=== PATIENT | female | born 1960 | race Caucasian/White ===

== ENCOUNTER 2017-03-31 10:47 | Emergency (ER) | payer OTHER ==
[2017-03-31 11:02] VITALS: BP 141/97
[2017-03-31] MEDS ORDERED: ORPHENADRINE CITRATE 30 MG/ML VIAL IM ONE (11:18)
[2017-03-31] MEDS ORDERED: ORPHENADRINE CITRATE 30 MG/ML VIAL ONE (11:19)
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
--- OUTSIDE RECORDS SUMMARY | 2017-03-31 12:19 | XMS REPORT | Continuity of Care Document ---
:1960 Author Organization [facility] [place] [address] Care Team Providers Name Role Phone Unavailable Primary Care Provider Unavailable Source Comments This disclosure is being made pursuant to the ACE*COMM program and maynot contain all information available regarding this patient.[facility] Active Allergies and Adverse Reactions Not on File Current Medications Be aware that medications may not be up to date as of this document. Alwaysverify current medications with the patient. Not on file Active Problems Not on file Social History Tobacco Use Types Packs/Day Years Used Date Never Assessed Plan of Care Health Maintenance Due Date Last Done Comments Retired-Pertussis Vaccine Adult 1978 Retired-Tetanus Vaccine Adult 1978 Pap Smear 1980 Mammogram 1999 Colonoscopy 2009 Well Adult Visit 2009 Retired-INFLUENZA VACCINE 06/18/2015 Results from Last 3 Months Not on file
--- NOTE | 2017-03-31 12:20 | ERNOTE ---
Back Pain ER HPI Date of Service: 03/31/17 Presenting Symptoms: hx chronic back pain Time Seen by Provider: 03/31/17 11:09 Source: patient Exam Limitations: no limitations Immunizations: IMMUNIZATION HX Immunizations Up to Date Yes History of Influenza Vaccine Yes Hx Pneumococcal Vaccination No Allergies/Adverse Reactions: Allergies quetiapine fumarate [From Seroquel] Allergy (Intermediate, Verified 03/31/17 11: 01) Hives risperidone Allergy (Intermediate, Verified 03/31/17 11:01) Hives codeine [Codeine] Adverse Reaction (Mild, Verified 03/31/17 11:01) Vomiting Home Medications: HOME MEDICATIONS ARIPiprazole [Abilify] 2.5 mg PO HS 03/31/17 [Last Taken Unknown] Amlodipine Besylate 10 mg PO DAILY 03/31/17 [Last Taken Unknown] Aspirin 81 mg PO DAILY 03/31/17 [Last Taken Unknown] Bupropion HCl [Wellbutrin Xl] 300 mg PO DAILY 03/31/17 [Last Taken Unknown] Buspirone HCl 30 mg PO BID 03/31/17 [Last Taken Unknown] Cetirizine HCl [Zyrtec] 10 mg PO DAILY 03/31/17 [Last Taken Unknown] Fluticasone Propionate [Flovent Diskus] 50 mcg IH BID 03/31/17 [Last Taken Unknown] Fluticasone/Salmeterol [Advair 250-50 Diskus] 1 puff IH BID 03/31/17 [Last Taken Unknown] Gabapentin [Neurontin] 300 mg PO HS 03/31/17 [Last Taken Unknown] Glycopyrrolate/Formoterol Fum [Bevespi Aerosphere Inhaler] 10.7 gm IH BID [Last Taken Unknown] Levothyroxine Sodium [Levoxyl] 25 mcg PO DAILY 03/31/17 [Last Taken Unknown] Lisinopril [Zestril] 10 mg PO DAILY 03/31/17 [Last Taken Unknown] Mirtazapine 7.5 mg PO HS 03/31/17 [Last Taken Unknown] Pravastatin Sodium 40 mg PO DAILY 03/31/17 [Last Taken Unknown] QUEtiapine FUMARATE [Seroquel] 25 mg PO HS 03/31/17 [Last Taken Unknown] Sertraline HCl [Zoloft] 100 mg PO DAILY 03/31/17 [Last Taken Unknown] Tramadol HCl [Rybix Odt] 50 mg PO Q6H PRN #15 tab.rapdis 03/31/17 [Last Taken Unknown] Vortioxetine Hydrobromide [Trintellix] 20 mg PO DAILY 03/31/17 [Last Taken Unknown] clonazePAM [Klonopin] 0.5 mg PO BID 03/31/17 [Last Taken Unknown] rOPINIRole HCL [Requip] 0.5 mg PO HS 03/31/17 [Last Taken Unknown] Narrative: Patient presents to the ED with diffuse musculoskeletal pains. She relates she has been moving and has been doing alot of lifting and twisting. She relates that she normally takes Ultram for this but has ran out of this and her last dose was last night. She states the thing that is bothering her most in her left hip because she twisted it but also her chronic orthopedic pains are flaring up in her neck, back, shoulder. No fever. No Cp or SOB. No abdominal pain. No dysuria. No other distinct injury or falls. Timing: Reports: constant Quality/Severity: Reports: severe Location of pain: Reports: other - multiple sites Possible Precipitating Factor: Reports: other - ran out of medications Modifying Factors - (Improves): Reports: nothing Modifying Factors - (Worsens): Reports: other - movement Associated Symptoms: Denies: fever/chills, numbess/weakness in legs Prior Treament: Denies: recently seen Review of Systems - Review of Systems Constitutional: Absent: fever Respiratory: Absent: shortness of breath Cardiology: Absent: chest pain Gastrointestinal/Abdominal: Absent: abdominal pain Neurological: Absent: weakness - Patient's Past Medical History Patient History - Medical: Chronic Pain, Depression, Fibromyalgia, Other Patient History - Cardiac/Respiratory: No pertinent hx Patient History - Cancer: Melanoma Patient History - Surgical Procedures: Appendectomy Patient History - Other: None - Family History Mother Family History - Medical: - Social History Living Situations: home Psych History: Hx of Anxiety, Hx of Depression, Hx of Bipolar Disorder, Current tx/ever been on anti-depressants or anti-anxiety meds Have you smoked in the past 12 months: - e-cigaret Alcohol Use: occasionally Drug Use: cocaine - Immunizations Immunizations Up to Date: Yes Hx Pneumococcal Vaccination: No History of Influenza Vaccine: Yes Physical Exam - Physical Exam General Appearance: Present: alert, no apparent distress, other - Sitting on the bed watching TV. Eye Exam: Normal inspection: bilateral, PERRL: bilateral Ears, Nose, Throat: Present: normal ENT inspection Neck: Present: normal inspection, other - some mild paraspinal muscular tendenress. No point vertebral tenderness Respiratory: Present: no respiratory distress, normal breath sounds, lungs clear Cardiovascular/Chest: Present: regular rate, rhythm, normal peripheral pulses Gastrointestinal/Abdominal: Present: normal bowel sounds, nontender, nondistended, soft Back Exam: Present: no vertebral tenderness, other - Mild parasoinal muscular tendenress diffusely Extremity Exam: Present: normal inspection, other - Mild lateral left hip tenderness. No deformity or signs of acute injury Neurological Exam: Present: alert, normal mood/affect, no motor/sensory deficits , rn gyn II-XII nml as tested. Absent: motor weakness Skin Exam: Absent: skin rash ED Progress - Vital Signs Patient's Vital Signs:: I have reviewed the patient's vital signs. Vital Signs: Vital Signs 03/31/17 10:58 Temperature 37 C Pulse Rate 75 Respiratory 14 Rate Blood Pressure 141/97 O2 Sat by Pulse 94 Oximetry - X-Ray X-Ray #1 X-Ray: hip Interpretation: Interp. by me X-ray Comments: I reviewed the official x-ray report - Progress/Reassessment Chief Complaint: Back Pain Progress Note-Subjective: 03/31/17 12:19 I offered her additional testing with labs, etc but she declines this and wishes a Rx for pain medications. I will give her a limited number of Ultram until she can f/u with her PCP. Ran out of her ultram at home. No other clear life or limb threats identified from exam. Departure Clinical Impression: Musculoskeletal pain - Departure Disposition: Home self-care Condition: Stable Instructions: Musculoskeletal Pain Additional Instructions: Rest. Fluids. No driving with medications. You need to follow-up with your doctor in the next 3 days for a re-check. Return here if your change your mind about having additional testing, develop weakness, fever or if your condition worsens or changes in any way. Prescriptions: Tramadol HCl [Rybix Odt] 50 mg PO Q6H PRN #15 tab.rapdis PRN Reason: Pain
== END 2017-03-31 12:11 | disposition home or self-care (01) ==
LOC: ER 10:47
DX: M25.552 Pain in left hip (principal); M54.2 Cervicalgia; M54.9 Dorsalgia, unspecified; M25.519 Pain in unspecified shoulder

== ENCOUNTER 2018-09-12 17:56 | Observation (INO) ==
[2018-09-12] MEDS ORDERED: ALBUTEROL SULFATE/IPRATROPIUM 3 ML NEBU IH ONE ×2 (18:00→18:12)
[2018-09-12] MEDS ORDERED: METHYLPREDNISOLONE SOD SUCC/PF 40 MG/ML VIAL IV ONE (18:21)
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
[2018-09-12 18:28] LABS: Hematocrit 35.2 % (37.0-47.0); Hemoglobin 12.2 gm/dL (12.5-16.0); Mean Cell Volume 92.6 fl (78-100); Mean Corpuscular Hemoglobin 32.1 pg (27-31); Mean Corpuscular Hgb Conc 34.7 g/dl (32-36); Mean Platelet Volume 8.7 fl (8-12.5); Neutrophil # 3.2 K/mm3 (1.3-6.0); Neutrophil % 45.2 % (42-75.0); Platelet Count 367 K/mm3 (150-450); Red Cell Distribution Width 13.1 % (11.5-14.0)
[2018-09-12] MEDS ORDERED: METHYLPREDNISOLONE SOD SUCC/PF 125 MG/2 ML VIAL ONE (18:28)
[2018-09-12 18:31] LABS: Venous Blood Gas HCO3 22.3 mmol/L (22.0-29.0); Venous Blood Gas pH 7.46 (7.32-7.43)
[2018-09-12 18:48] LABS: ALT 17 U/L (19-67); AST 19 U/L (0-48); Albumin * 3.6 gm/dl (3.4-5.0); Alkaline Phosphatase * 129 U/L (50-170); Anion Gap 10.8 mmol/L (6.8-13.8); BUN/Creatinine Ratio 10.3 (9.0-21.6); Bilirubin, Total 0.2 mg/dL (0.0-1.1); Blood Urea Nitrogen 8 mg/dL (3-23); Ca. Corrected For Albumin 9.1 mg/dL (8.4-10.2); Calcium * 9.1 mg/dL (7.9-10.9); Carbon Dioxide 30.9 mmol/L (24-32.6); Chloride 91 mmol/L (97-106); Glucose * 95 mg/dL (70-110); Magnesium 1.6 mg/dL (1.2-2.8); Potassium 3.7 mmol/L (3.4-4.6); Sodium 129 mmol/L (132-142); Total Protein 7.4 gm/dL (6.2-8.2); Troponin I Less than 0.017 ng/mL (0.00-0.10)
--- NOTE | 2018-09-12 20:10 | HP ---
Chief Complaint - Chief Complaint Date of Service: 09/12/18 Time of Service: 19:43 Chief Complaint: Cough, SOB, and gen.weakness of 5 days duration, nausea and vomiting of 3 days duration. History of Present Illness: 58 y/o Caucacian female with PMHx of COPD, Chron's disease, chronic pain disorder, Anxiety disorder, depresssion, TIA, Bronchial pneumonia, was brought to the ER in an ambulance due to worsening SOB, increased respiratory effort, dry cough, and generalized weakness of 5 days duration. Px reports that her symptoms started with a persistent cough followed by SOB that quickly got worse and that did not respond to at home breathing treatments with Albuterol. Several days later, Px had several episodes of fever and chills treated with Acetaminophen. Px also reports nausea and several episodes of vomiting which makes oral intake difficult. Her family decided to bring her in today when they noticed her severe weakness, lack of response to at home treatments, and an overall ill appearance of the patient. Medical History (Last Updated 09/12/18 @ 19:17 by Lena Ochoa RN) COPD (chronic obstructive pulmonary disease) Crohn disease Hx of TIA (transient ischemic attack) and stroke Hypertension Hypothyroidism hx of multiple fractures Surgical History: Surgical History (Last Updated 09/12/18 @ 18:09 by Lena Ochoa RN) Hx of appendectomy Hx of kidney removal Hx of splenectomy Hx of tonsillectomy Poor historian Family History: Family History (Last Updated 09/12/18 @ 18:09 by Lena Ochoa RN) Other No pertinent family history Social History: Preferred Language Stateless Do you have any congregational or No cultural preference? Smoking Status Current every day smoker Abuse History No History of abuse Psych History Hx of Anxiety,Hx of Depression,Hx of Bipolar Disorder,Currently on Meds Alcohol Use none Drug Use none No Social History Section defined Peds Patient Hx - Developmental: No Pertinent Hx Peds Patient Hx - Medical: No Pertinent Hx Peds Patient Hx - Cardiac/Respiratory: No Pertinent Hx Peds Patient Hx - Surgical: No Surgical History Patient History - Cancer: No Hx of Cancer Review Of Systems (GEN) - Review of Systems Generalized/Overall Review: Present: Weakness, Chills, Fever, Malaise, Fatigue, Weight loss EENTM: Present: No Symptoms Reported Respiratory: Present: Cough, Shortness of Breath, Wheezing Cardiac: Present: No Symptoms Reported Abdominal: Present: Nausea, Vomiting, Other - anorexia Genitourinary: Present: No Symptoms Reported Musculoskeletal: Present: No Symptoms Reported Neurological: Present: No Symptoms Reported Skin: Present: No Symptoms Reported Endocrine: Present: No Symptoms Reported Immunizations: IMMUNIZATION HX Immunizations Up to Date Yes History of Influenza Vaccine Yes Hx Pneumococcal Vaccination Yes Allergies/Adverse Reactions: Allergies Allergy/AdvReac Type Severity Reaction Status Date / Time quetiapine fumarate Allergy Intermediate Hives Verified 09/12/18 18:07 [From Seroquel] risperidone Allergy Intermediate Hives Verified 09/12/18 18:07 codeine [Codeine] AdvReac Mild Vomiting Verified 09/12/18 18:07 Home Medications: HOME MEDICATIONS Aspirin 81 mg PO DAILY 03/31/17 [Last Taken Unknown] Fluticasone Propionate [Flovent Diskus] 50 mcg IH BID 03/31/17 [Last Taken Unknown] Glycopyrrolate/Formoterol Fum [Bevespi Aerosphere Inhaler] 10.7 gm IH BID 03/31/17 [Last Taken Unknown] Levothyroxine Sodium [Levoxyl] 25 mcg PO DAILY 03/31/17 [Last Taken Unknown] Pravastatin Sodium 40 mg PO DAILY 03/31/17 [Last Taken Unknown] Vortioxetine Hydrobromide [Trintellix] 20 mg PO DAILY 03/31/17 [Last Taken 03/31/18 09:00] Albuterol Sulfate [Proventil Hfa] 2 puff IH Q4H PRN 03/31/18 [Last Taken Unknown] Benzonatate [Tessalon Perle] 100 mg PO TID PRN 03/31/18 [Last Taken Unknown] Clonidine HCl [Catapres] 0.1 mg PO BID 03/31/18 [Last Taken Unknown] Diphenhydramine HCl 50 mg PO HS PRN 03/31/18 [Last Taken Unknown] Doxepin HCl [Silenor] 3 mg PO HS 03/31/18 [Last Taken Unknown] Fluticasone Propionate [Flovent Hfa] 2 inh IH BID 03/31/18 [Last Taken Unknown] Gabapentin 1,200 mg PO TID 03/31/18 [Last Taken Unknown] Guaifenesin/Hydrocodone [Flowtuss 2.5-200 mg/5 ml Soln] 10 ml PO Q4H PRN 03/31/18 [Last Taken Unknown] Loratadine [Claritin] 10 mg PO DAILY 03/31/18 [Last Taken Unknown] Lurasidone HCl [Latuda] 40 mg PO QPM 03/31/18 [Last Taken Unknown] Meloxicam 7.5 mg PO DAILY 03/31/18 [Last Taken Unknown] Montelukast Sodium [Singulair] 10 mg PO QPM 03/31/18 [Last Taken Unknown] Omeprazole 40 mg PO DAILY 03/31/18 [Last Taken Unknown] Polyethylene Glycol 3350 [Smoothlax] 17 gm PO DAILY 03/31/18 [Last Taken Unknown] amLODIPine BESYLATE [Norvasc] 10 mg PO DAILY 03/31/18 [Last Taken Unknown] hydrOXYzine PAMOATE [Vistaril] 25 mg PO Q8H PRN 03/31/18 [Last Taken Unknown] oxyCODONE HCL [Oxycodone] 5 mg PO DAILY PRN 03/31/18 [Last Taken Unknown] prednisoLONE ACETATE [Pred Forte 1%] 1 drop OP Q2H 03/31/18 [Last Taken Unknown] rOPINIRole HCL [Requip] 2 mg PO QPM 03/31/18 [Last Taken Unknown] Albuterol Sulfate/Ipratropium [Duoneb 2.5-0.5MG/3ML Soln] 3 ml IH Q4H PRN #180 nebu 04/01/18 [Last Taken Unknown] Levofloxacin [Levaquin] 750 mg PO DAILY 5 Days #5 tablet 04/01/18 [Last Taken Unknown] predniSONE [Prednisone] 2 tab PO DAILY 5 Days #10 tab 04/01/18 [Last Taken Unknown] Amox Tr/Potassium Clavulanate [Augmentin 875-125 Tablet] 875 mg PO Q12H #20 tab 05/04/18 [Last Taken Unknown] Exam - Exam Vital Signs: Vital Signs - Last Taken Temp 36.2 C 09/12/18 18:04 Pulse 77 09/12/18 19:14 Resp 15 09/12/18 19:14 BP 173/114 H 09/12/18 18:15 Pulse Ox 93 09/12/18 19:14 Constitutional: Present: Alert, Oriented x3, Cooperative, No distress, Elderly, Thin and frail, Looks Older than stated age ENT Exam: Present: normal ENT inspection, hearing grossly normal, pharynx normal, TMs normal Eye Exam: bilateral eye: normal inspection, PERRL, EOMI Neck: Present: non-tender, full range of motion, supple, normal inspection Back Exam: Present: normal inspection, no CVA tenderness, no vertebral tenderness Breasts: Present: Exam deferred Respiratory: Present: decreased breath sounds, rhonchi, wheezing Cardiovascular/Chest: Present: normal peripheral pulses, regular rate, rhythm, no chest tenderness, no edema, no gallop, no JVD, no murmur Peripheral Pulses: carotid (R): 3+, carotid (L): 3+, femoral (R): 3+, femoral (L): 3+, dorsalis-pedis (R): 3+, dorsalis-pedis (L): 3+ Abdomen: Present: Normal bowel sounds, soft, nontender, nondistended, no rebound tenderness, no hepatospenomegaly, no masses /Rectal: Present: Exam deferred Extremity: Present: normal range of motion, non-tender, normal inspection, no pedal edema, no calf tenderness, slow capillary refill Skin Exam: Present: normal color, warm/dry, no cyanosis Lymphatic: Present: no adenopathy Neurologic: Present: 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 as tested, normal cerebellar test, no motor/sensory deficits, alert, oriented x 3 Appearance: Present: appropriate appearance, appropriate insight, no memory impairment, disheveled Eye contact: Present: cooperative, good eye contact, normal speech Thoughts: Present: normal thought pattern, no apparent hallucination Diagnostic Studies: Abnormal Lab Results 09/12/18 09/12/18 09/12/18 Range/Units 18:24 18:24 18:24 RBC 3.80 L (4.2-5.4) M/mm3 Hgb 12.2 L (12.5-16.0) gm/dL Hct 35.2 L (37.0-47.0) % MCH 32.1 H (27-31) pg Monocytes % 15.9 H (0.0-9) % Basophils % 1.1 H (0.0-1.0) % Monocytes # 1.1 H (0.0-1.0) k/mm3 pCO2 31.8 L (32.0-45.0) mmHg pO2 70.5 H (23.3-35.1) mmHg ABG pH 7.46 H (7.32-7.43) Sodium 129 L (132-142) mmol/L Plasma Sodium 129 L (130-142) mmol/L Chloride 91 L (97-106) mmol/L ALT 17 L (19-67) U/L Laboratory Results WBC 7.0 K/mm3 (4.0-10.5) 09/12/18 18: RBC 3.80 M/mm3 (4.2-5.4) L 09/12/18 18:24 Hgb 12.2 gm/dL (12.5-16.0) L 09/12/18 18:24 Hct 35.2 % (37.0-47.0) L 09/12/18 18:24 MCV 92.6 fl (78-100) 09/12/18 18: MCH 32.1 pg (27-31) H 09/12/18 18: MCHC 34.7 g/dl (32-36) 09/12/18 18: RDW 13.1 % (11.5-14.0) 09/12/18 18: Plt Count 367 K/mm3 (150-450) 09/12/18 18:24 MPV 8.7 fl (8-12.5) 09/12/18 18: Immature Gran % (Auto) 0.40 % (0.001-0.429) 09/12/18 18: Immature Gran # (Auto) 0.03 K/mm3 (0.000-0.0310) 09/12/18 18:24 Neutrophils % 45.2 % (42-75.0) 09/12/18 18: Lymphocytes % 35.4 % (20-51) 09/12/18 18:24 Monocytes % 15.9 % (0.0-9) H 09/12/18 18:24 Eosinophils % 2.0 % (0.0-3.0) 09/12/18 18: Basophils % 1.1 % (0.0-1.0) H 09/12/18 18:24 Nucleated RBC % 0.0 k/mm3 (0-1) 09/12/18 18: Neutrophils # 3.2 K/mm3 (1.3-6.0) 09/12/18 18:24 Lymphocytes # 2.49 k/mm3 (1.5-3.5) 09/12/18 18:24 Monocytes # 1.1 k/mm3 (0.0-1.0) H 09/12/18 18: Eosinophils # 0.1 k/mm3 (0.0-0.7) 09/12/18 18:24 Absolute Basophils 0.1 k/mm3 (0.0-0.1) 09/12/18 18:24 pCO2 31.8 mmHg (32.0-45.0) L 09/12/18 18:24 pO2 70.5 mmHg (23.3-35.1) H 09/12/18 18:24 HCO3 22.3 mmol/L (22.0-29.0) 09/12/18 18: Total CO2 23.3 mmol/L (22.0-26.0) 09/12/18 18: Base Excess -0.6 mmol/L (-2.0-3.0) 09/12/18 18:24 ABG pH 7.46 (7.32-7.43) H 09/12/18 18:24 VBG O2 Saturation 95.2 % (94.0-98.0) 09/12/18 18:24 Sodium 129 mmol/L (132-142) L 09/12/18 18:24 Plasma Sodium 129 mmol/L (130-142) L 09/12/18 18:24 Potassium 3.7 mmol/L (3.4-4.6) 09/12/18 18: Chloride 91 mmol/L (97-106) L 09/12/18 18: Carbon Dioxide 30.9 mmol/L (24-32.6) 09/12/18 18:24 Anion Gap 10.8 mmol/L (6.8-13.8) 09/12/18 18:24 BUN 8 mg/dL (3-23) 09/12/18 18: Creatinine 0.78 mg/dL (0.4-1.4) 09/12/18 18: Est GFR (Non-Af Amer) 80 mL/min (60-130) 09/12/18 18:24 BUN/Creatinine Ratio 10.3 (9.0-21.6) 09/12/18 18: Random Glucose 95 mg/dL (70-110) 09/12/18 18:24 Calcium 9.1 mg/dL (7.9-10.9) 09/12/18 18:24 Calcium Adj for Albumin 9.1 mg/dL (8.4-10.2) 09/12/18 18:24 Magnesium 1.6 mg/dL (1.2-2.8) 09/12/18 18:24 Total Bilirubin 0.2 mg/dL (0.0-1.1) 09/12/18 18:24 AST 19 U/L (0-48) 09/12/18 18:24 ALT 17 U/L (19-67) L 09/12/18 18:24 Alkaline Phosphatase 129 U/L (50-170) 09/12/18 18:24 Troponin I Less than 0.017 ng/mL (0.00-0.10) 09/12/18 18:24 Total Protein 7.4 gm/dL (6.2-8.2) 09/12/18 18:24 Albumin 3.6 gm/dl (3.4-5.0) 09/12/18 18:24 Assessment/Plan - Narrative Narrative: Px will be admitted to inpatient observation for treatment with IV steroids, breathing treatments, Oxygen therapy, Iv antibx, and IV hydration. We will continue to monitor her closely. - Assessment/Plan (1) COPD (chronic obstructive pulmonary disease) with acute bronchitis Problem: Acute (2) Dehydration, moderate Problem: Acute (3) Inadequate oral intake Problem: Acute (4) Weakness generalized Problem: Acute (5) Weakness generalized Problem: Acute
[2018-09-12] MEDS ORDERED: diphenhydrAMINE HCL 25 MG CAPSULE PO PRN (20:25)
[2018-09-12] MEDS ORDERED: guaiFENesin 100 MG/5 ML BTL PO PRN (20:31)
[2018-09-12] MEDS ORDERED: Doxepin Hcl [Silenor] 3 MG PO SCH (21:00)
[2018-09-12] MEDS ORDERED: ENOXAPARIN SODIUM 40 MG/0.4 ML SYRG SC SCH (21:00)
[2018-09-12] MEDS: NORMAL SALINE 1,000 ML IV PRN (21:23)
[2018-09-12] MEDS ORDERED: AZITHROMYCIN 500 MG in DEXTROSE 5 % IN WATER 250 ML IV ONE ×2 (21:45)
[2018-09-12] MEDS: CLONIDINE HCL 0.1 MG TABLET PO SCH (22:20)
[2018-09-12] MEDS: FAMOTIDINE 20 MG TABLET PO SCH (22:21)
[2018-09-12] MEDS: ALBUTEROL SULFATE/IPRATROPIUM 3 ML NEBU IH PRN (23:49)
[2018-09-13] MEDS: METHYLPREDNISOLONE SOD SUCC/PF 40 MG/ML VIAL IV SCH ×3 (00:45→12:06)
[2018-09-13] MEDS: BENZONATATE 100 MG CAPSULE PO PRN ×2 (00:45→08:38)
[2018-09-13] MEDS: ACETAMINOPHEN 500 MG TABLET PO PRN ×2 (01:09→08:38)
[2018-09-13] MEDS: NORMAL SALINE 1,000 ML IV PRN (05:26)
[2018-09-13 06:11] LABS: Anion Gap 14.5 mmol/L (6.8-13.8); BUN/Creatinine Ratio 12.6 (9.0-21.6); Calcium * 8.7 mg/dL (7.9-10.9); Carbon Dioxide 25.8 mmol/L (24-32.6); Estimated Creat Clear 70.2; Potassium 4.3 mmol/L (3.4-4.6)
[2018-09-13] MEDS: ALBUTEROL SULFATE/IPRATROPIUM 3 ML NEBU IH PRN (07:06)
[2018-09-13] MEDS: FAMOTIDINE 20 MG TABLET PO SCH (08:38)
[2018-09-13] MEDS: GABAPENTIN 600 MG TABLET PO SCH ×2 (08:39→12:07)
[2018-09-13] MEDS: CLONIDINE HCL 0.1 MG TABLET PO SCH (08:40)
[2018-09-13] MEDS ORDERED: GABAPENTIN 300 MG CAPSULE PO SCH (09:00)
[2018-09-13] MEDS ORDERED: PANTOPRAZOLE SODIUM 40 MG TABLET.EC PO SCH (09:00)
[2018-09-13] MEDS ORDERED: ASPIRIN 81 MG TAB.CHEW PO SCH (09:00)
[2018-09-13] MEDS ORDERED: AZITHROMYCIN 250 MG TABLET PO SCH (09:00)
[2018-09-13] MEDS ORDERED: amLODIPine BESYLATE 5 MG TABLET PO SCH (09:00)
[2018-09-13] MEDS ORDERED: amLODIPine BESYLATE 10 MG TABLET PO SCH (09:00)
--- NOTE | 2018-09-13 11:52 | DS ---
(1) COPD (chronic obstructive pulmonary disease) with acute bronchitis Problem: Acute (2) Dehydration, moderate Problem: Resolved (3) Inadequate oral intake Problem: Resolved (4) Weakness generalized Problem: Resolved (5) Weakness generalized Problem: Resolved Description of Stay: 58 y/o female admitted for COPD exacerbation and acute bronchitis was evaluated at bedside and was found to be afebrile and in no acute distress. Px's respiratory function has improved, it is less labored and ABG reveal improved blood gases. Px tolerated a regular diet without any issues and was treated with IV antibiotics, O2, IV steroids, and breathing treatments around the clock. She responded favorably to treatment. Therefore, decision to discharge has been made. Px will be sent home with additional days of oral steroids, oral antibiotics, and instructions to f/u with her PCP in 3-5 days. Procedures Performed: none Results and Findings: Lab Pending Results 09/12/18 18:24: WBC 7.0, RBC 3.80 L, Hgb 12.2 L, Hct 35.2 L, MCV 92.6, MCH 32.1 H, MCHC 34.7, RDW 13.1, Plt Count 367, MPV 8.7, Immature Gran % (Auto) 0.40, Immature Gran # (Auto) 0.03, Neutrophils % 45.2, Lymphocytes % 35.4, Monocytes % 15.9 H, Eosinophils % 2.0, Basophils % 1.1 H, Nucleated RBC % 0.0, Neutrophils # 3.2, Lymphocytes # 2.49, Monocytes # 1.1 H, Eosinophils # 0.1, Absolute Basophils 0.1 09/12/18 18:24: Sodium 129 L, Plasma Sodium 129 L, Potassium 3.7, Chloride 91 L, Carbon Dioxide 30.9, Anion Gap 10.8, BUN 8, Creatinine 0.78, Est GFR (Non-Af Amer) 80, BUN/Creatinine Ratio 10.3, Random Glucose 95, Calcium 9.1, Calcium Adj for Albumin 9.1, Magnesium 1.6, Total Bilirubin 0.2, AST 19, ALT 17 L, Alkaline Phosphatase 129, Troponin I Less than 0.017, Total Protein 7.4, Albumin 3.6 09/12/18 18:24: pCO2 31.8 L, pO2 70.5 H, HCO3 22.3, Total CO2 23.3, Base Excess -0.6, ABG pH 7.46 H, VBG O2 Saturation 95.2 09/13/18 05:24: Sodium 130 L, Plasma Sodium 131, Potassium 4.3, Chloride 94 L, Carbon Dioxide 25.8, Anion Gap 14.5 H, BUN 11, Creatinine 0.87, Est GFR (Non-Af Amer) 71, BUN/Creatinine Ratio 12.6, Random Glucose 152 H D, Calcium 8.7 09/13/18 09:05: pCO2 33.2, pO2 85.0, HCO3 19.8 L, Total CO2 20.8, Base Excess - 4.3 L, ABG pH 7.39, ABG O2 Sat (Measured) 96.5 Discharge Location: Home Disposition: Home self-care Condition: Fair Discharge Activity: Activity as tolerated Discharge Diet: General/regular food Referrals: Betty Marshall FNP [Primary Care Provider] - Problem Oriented Discharge Instructions to Patient/Family: Chronic Obstructive Pulmonary Disease Exacerbation, [id number], Smoking Cessation, Tips for Success, [id number] Additional Patient Instructions (free text): Follow up with Betty Marshall on 09-15-18 at 11:45am. Resume at oxygen at previous rate, f/u with PCP in 3-5 days, complete oral antibiotics and oral steroids. Prescriptions (Any new or edited meds): RX: Azithromycin 250 mg PO DAILY 4 Days #4 tablet RX: Prednisone 40 mg PO DAILY 5 Days #5 tablet Complete Home Medications List: Complete Home Medication List: RX: Aspirin 81 mg PO DAILY 03/31/17 RX: Glycopyrrolate/Formoterol Fum [Bevespi Aerosphere Inhaler] 10.7 gm IH BID 03/31/17 RX: Levothyroxine Sodium [Levoxyl] 25 mcg PO DAILY 03/31/17 RX: Pravastatin Sodium 40 mg PO DAILY 03/31/17 RX: Vortioxetine Hydrobromide [Trintellix] 20 mg PO DAILY 03/31/17 RX: Albuterol Sulfate [Proventil Hfa] 2 puff IH Q4H PRN 03/31/18 RX: Clonidine HCl [Catapres] 0.1 mg PO BID 03/31/18 RX: Diphenhydramine HCl 50 mg PO HS PRN 03/31/18 RX: Doxepin HCl [Silenor] 3 mg PO HS 03/31/18 RX: Fluticasone Propionate [Flovent Hfa] 2 inh IH BID 03/31/18 RX: Gabapentin 1,200 mg PO TID 03/31/18 RX: Loratadine [Claritin] 10 mg PO DAILY 03/31/18 RX: Lurasidone HCl [Latuda] 40 mg PO QPM 03/31/18 RX: Meloxicam 7.5 mg PO DAILY 03/31/18 RX: Montelukast Sodium [Singulair] 10 mg PO QPM 03/31/18 RX: Omeprazole 40 mg PO DAILY 03/31/18 RX: Polyethylene Glycol 3350 [Smoothlax] 17 gm PO DAILY 03/31/18 RX: amLODIPine BESYLATE [Norvasc] 10 mg PO DAILY 03/31/18 RX: hydrOXYzine PAMOATE [Vistaril] 25 mg PO Q8H PRN 03/31/18 RX: rOPINIRole HCL [Requip] 2 mg PO QPM 03/31/18 RX: Albuterol Sulfate/Ipratropium [Duoneb 2.5-0.5MG/3ML Soln] 3 ml IH Q4H PRN #180 nebu 04/01/18 RX: Sertraline HCl [Zoloft] 150 mg PO DAILY 09/12/18 RX: Azithromycin 250 mg PO DAILY 4 Days #4 tablet 09/13/18 RX: Prednisone 40 mg PO DAILY 5 Days #5 tablet 09/13/18
[2018-09-13 15:00] VITALS: BP 124/75
== END 2018-09-13 14:10 | disposition home or self-care (01) ==
LOC: ER 17:56 → MS 17:56
PROVIDERS: ADMIT Family Medicine; ATTEND Family Medicine
CPT/HCPCS: 36415; 36416; 36600; 71020; 71046; 80048; 80053; 82803; 83735; 84484; 85025; 87081; 93005; 94640; 94664; 94760; 96361; 96372; 96374; 96375; 99285; G0378

== ENCOUNTER 2018-11-18 18:33 | Observation (INO) ==
[2018-11-18] MEDS ORDERED: AZITHROMYCIN 250 MG TABLET PO STA (18:43)
[2018-11-18] MEDS ORDERED: ALBUTEROL SULFATE/IPRATROPIUM 3 ML NEBU IH ONE (18:49)
[2018-11-18] MEDS: NORMAL SALINE 1,000 ML IV PRN (18:59)
--- NOTE | 2018-11-18 19:07 | ERNOTE ---
Dyspnea - Date Date of Service: 11/18/18 - General Presenting Symptoms: shortness of breath Time Seen by Provider: 11/18/18 18:43 Source: patient Exam Limitations: clinical condition - Immun/Allergies/Home Medications Immunizations: IMMUNIZATION HX Immunizations Up to Date Yes History of Influenza Vaccine Yes Hx Pneumococcal Vaccination Yes Allergies/Adverse Reactions: Allergies quetiapine fumarate [From Seroquel] Allergy (Intermediate, Verified 11/18/18 18:47) Hives risperidone Allergy (Intermediate, Verified 11/18/18 18:47) Hives codeine [Codeine] Adverse Reaction (Mild, Verified 11/18/18 18:47) Vomiting Home Medications: HOME MEDICATIONS Aspirin 81 mg PO DAILY 03/31/17 [Last Taken Unknown] Glycopyrrolate/Formoterol Fum [Bevespi Aerosphere Inhaler] 10.7 gm IH BID 03/18 02/01 [Last Taken Unknown] Levothyroxine Sodium [Levoxyl] 25 mcg PO DAILY 03/31/17 [Last Taken Unknown] Pravastatin Sodium 40 mg PO DAILY 03/31/17 [Last Taken Unknown] Vortioxetine Hydrobromide [Trintellix] 20 mg PO DAILY 03/31/17 [Last Taken 03/31/18 09:00] Albuterol Sulfate [Proventil Hfa] 2 puff IH Q4H PRN 03/31/18 [Last Taken Unknown] Clonidine HCl [Catapres] 0.1 mg PO BID 03/31/18 [Last Taken Unknown] Diphenhydramine HCl 50 mg PO HS PRN 03/31/18 [Last Taken Unknown] Doxepin HCl [Silenor] 3 mg PO HS 03/31/18 [Last Taken Unknown] Fluticasone Propionate [Flovent Hfa] 2 inh IH BID 03/31/18 [Last Taken Unknown] Gabapentin 1,200 mg PO TID 03/31/18 [Last Taken Unknown] Loratadine [Claritin] 10 mg PO DAILY 03/31/18 [Last Taken Unknown] Lurasidone HCl [Latuda] 40 mg PO QPM 03/31/18 [Last Taken Unknown] Meloxicam 7.5 mg PO DAILY 03/31/18 [Last Taken Unknown] Montelukast Sodium [Singulair] 10 mg PO QPM 03/31/18 [Last Taken Unknown] Omeprazole 40 mg PO DAILY 03/31/18 [Last Taken Unknown] Polyethylene Glycol 3350 [Smoothlax] 17 gm PO DAILY 03/31/18 [Last Taken Unknown] amLODIPine BESYLATE [Norvasc] 10 mg PO DAILY 03/31/18 [Last Taken Unknown] hydrOXYzine PAMOATE [Vistaril] 25 mg PO Q8H PRN 03/31/18 [Last Taken Unknown] rOPINIRole HCL [Requip] 2 mg PO QPM 03/31/18 [Last Taken Unknown] Albuterol Sulfate/Ipratropium [Duoneb 2.5-0.5MG/3ML Soln] 3 ml IH Q4H PRN #180 nebu 04/01/18 [Last Taken Unknown] Sertraline HCl [Zoloft] 150 mg PO DAILY 09/12/18 [Last Taken Unknown] Cefuroxime Axetil [Ceftin] 500 mg PO BID #20 tab 09/17/18 [Last Taken Unknown] - History of Present Illness Narrative: Patient is a 58-year-old female who came here with shortness of breath. She is concerned that she has pneumonia. She said that she has been sick for months. She said that for the last week she has had increased respiratory distress with productive cough and feverish feeling. She is getting up green and mclain sputum. Her chest hurts. She has other cold symptoms. She has a history of COPD. She quit smoking 2 days ago. She ran out of oxygen 2 days ago she said that she uses 5. She has been using her nebulizer. She is to 3 times a day with the last time being just prior to arrival. Review of Systems - Review of Systems Constitutional: Present: fever - Subjective, chills, fatigue, malaise, weight loss EYE: Absent: eye discharge, vision changes ENT: Present: ear pain, nose congestion, nasal drainage, sore throat Respiratory: Present: shortness of breath, cough Cardiology: Present: chest pain, palpitations Gastrointestinal/Abdominal: Present: nausea - 2 days ago, vomiting - 2 days ago, eating less. Absent: diarrhea, constipation, abdominal pain, drinking less Genitourinary: Present: frequency - Secondary to increased fluid intake. Absent: pain, dysuria, hematuria Musculoskeletal: Present: back pain, muscle pain, neck pain, joint pain Skin: Absent: rash Neurological: Present: anxiety, headache. Absent: depressed Endocrine: Present: no symptoms reported Hematologic/Lymphatic: Present: other - No bleeding. Psych: Present: anxiety. Absent: depressed Medical History (Last Reviewed 11/18/18 @ 19:40 by Benedict Soto MD) COPD (chronic obstructive pulmonary disease) Crohn disease Hx of TIA (transient ischemic attack) and stroke Hypertension Hypothyroidism hx of multiple fractures Surgical History: Surgical History (Last Reviewed 11/18/18 @ 19:40 by Benedict Soto MD) Hx of appendectomy Hx of kidney removal Hx of splenectomy Hx of tonsillectomy Poor historian Family History: Family History (Last Reviewed 11/18/18 @ 18:48 by Janelle Shanks) Other No pertinent family history Social History: Preferred Language [place] Smoking Status Current every day smoker Abuse History No History of abuse Psych History Hx of Anxiety,Hx of Depression,Hx of Bipolar Disorder,Currently on Meds Alcohol Use none Drug Use none No Social History Section defined Physical Exam - Physical Exam General Appearance: Present: alert, mild distress, cachetic Head Exam: Present: normal inspection, no evidence of injury Eye Exam: Normal inspection: bilateral Ears, Nose, Throat: Present: normal ENT inspection Neck: Present: normal inspection. Absent: lymphadenopathy (R), lymphadenopathy (L), thyromegaly Respiratory: Present: no accessory muscle use, chest tenderness, decreased breath sounds, expiration (prolonged) Cardiovascular/Chest: Present: regular rate, rhythm, no murmur Gastrointestinal/Abdominal: Present: normal bowel sounds, nontender, nondistended, soft, no organomegaly Back Exam: Present: normal inspection Extremity Exam: Present: normal inspection, non-tender, no edema Neurological Exam: Present: alert, oriented, normal mood/affect Skin Exam: Present: normal color, warm/dry Progress - Date and Time Seen: Date and Time: 11/18/18 19:34 I talked with the patient about the x-ray and further treatment. She does not think she is going to stay at this point. 11/18/18 20:15 The patient continues to wheeze despite treatments. She continues to be short of breath. We talked about inpatient versus outpatient treatment. She is agreeable to staying. Dr. Manzano agrees to care for the patient. - Results and Orders Patient's Lab Results:: I have reviewed the patient's lab results. Results and Orders: Laboratory Tests 11/18/18 11/18/18 11/18/18 18:50 19:03 19:03 WBC 8.9 Hgb 11.4 L Hct 33.9 L Plt Count 404 Immature Gran % (Auto) 0.20 Neutrophils % 44.1 Lymphocytes % 33.2 Monocytes % 16.7 H Eosinophils % 5.1 H Basophils % 0.7 Nucleated RBC % 0.0 pCO2 51.1 H pO2 83.5 HCO3 26.8 Total CO2 28.4 H Base Excess 0.4 ABG pH 7.34 L ABG O2 Sat (Measured) 95.5 Plasma Sodium Potassium Chloride Carbon Dioxide Anion Gap BUN Creatinine Est GFR (Non-Af Amer) Random Glucose Lactic Acid, Venous 0.6 Calcium Adj for Albumin Total Bilirubin AST ALT Alkaline Phosphatase Total Protein Albumin 11/18/18 19:03 WBC Hgb Hct Plt Count Immature Gran % (Auto) Neutrophils % Lymphocytes % Monocytes % Eosinophils % Basophils % Nucleated RBC % pCO2 pO2 HCO3 Total CO2 Base Excess ABG pH ABG O2 Sat (Measured) Plasma Sodium 137 Potassium 3.8 Chloride 96 L Carbon Dioxide 31.5 Anion Gap 13.3 BUN 12 Creatinine 0.65 Est GFR (Non-Af Amer) 99 D Random Glucose 98 Lactic Acid, Venous Calcium Adj for Albumin 9.2 Total Bilirubin 0.2 AST 30 ALT 21 Alkaline Phosphatase 107 Total Protein 7.2 Albumin 3.8 - Vital Signs Patient's Vital Signs:: I have reviewed the patient's vital signs. Vital Signs: Vital Signs 11/18/18 18:42 Temperature 36.6 C Pulse Rate 91 Respiratory Rate 31 H Blood Pressure 196/114 H O2 Sat by Pulse Oximetry 83 L - EKG EKG #1 EKG read: Interp. by ca EKG Comments: Normal sinus rhythm Rate 89 Poor R wave progression No acute appearing ST or T wave changes. Similar to an EKG dated 09/12/2018 - X-Ray X-Ray #1 X-Ray: chest Interpretation: Interp. by me X-ray Comments: Portable 1 view Hyperinflation Normal mediastinum No infiltrate or pneumothorax - Progress/Reassessment Chief Complaint: Dyspnea Departure Clinical Impression: COPD with acute lower respiratory infection - Departure Disposition: Still a patient Condition: Stable Referrals: Betty Marshall, WEIR FISHER [Primary Care Provider] -
[2018-11-18 19:13] LABS: Hematocrit 33.9 % (37.0-47.0); Hemoglobin 11.4 gm/dL (12.5-16.0); Mean Cell Volume 96.3 fl (78-100); Mean Corpuscular Hemoglobin 32.4 pg (27-31); Mean Corpuscular Hgb Conc 33.6 g/dl (32-36); Mean Platelet Volume 9.2 fl (8-12.5); Neutrophil # 3.9 K/mm3 (1.3-6.0); Neutrophil % 44.1 % (42-75.0); Platelet Count 404 K/mm3 (150-450); Red Blood Count 3.52 M/mm3 (4.2-5.4); Red Cell Distribution Width 15.2 % (11.5-14.0); White Blood Count 8.9 K/mm3 (4.0-10.5)
[2018-11-18 19:23] LABS: Albumin * 3.8 gm/dl (3.4-5.0); Anion Gap 13.3 mmol/L (6.8-13.8); BUN/Creatinine Ratio 18.5 (9.0-21.6); Bilirubin, Total 0.2 mg/dL (0.0-1.1); Ca. Corrected For Albumin 9.2 mg/dL (8.4-10.2); Calcium * 9.4 mg/dL (7.9-10.9); Carbon Dioxide 31.5 mmol/L (24-32.6); Potassium 3.8 mmol/L (3.4-4.6); Total Protein 7.2 gm/dL (6.2-8.2)
[2018-11-18] MEDS ORDERED: ALBUTEROL SULFATE 2.5 MG/0.5 ML VIAL.NEB IH ONE (19:26)
[2018-11-18] MEDS ORDERED: METHYLPREDNISOLONE SOD SUCC/PF 125 MG/2 ML VIAL IV ONE (19:26)
[2018-11-18] MEDS ORDERED: hydrOXYzine PAMOATE 25 MG CAPSULE PO ONE (22:40)
[2018-11-18] MEDS ORDERED: LURASIDONE HCL 80 MG TABLET PO ONE (22:41)
[2018-11-18] MEDS ORDERED: MONTELUKAST SODIUM 10 MG TABLET PO ONE (22:42)
[2018-11-18] MEDS ORDERED: MIRTAZAPINE 15 MG TABLET PO ONE (22:43)
[2018-11-18] MEDS ORDERED: rOPINIRole HCL 1 MG TABLET PO ONE (22:43)
[2018-11-18] MEDS ORDERED: oxyCODONE HCL/ACETAMINOPHEN 1 TAB TABLET PO PRN (22:45)
[2018-11-18] MEDS ORDERED: GABAPENTIN 600 MG TABLET PO ONE (22:45)
[2018-11-18] MEDS ORDERED: CLONIDINE HCL 0.1 MG TABLET PO ONE (22:45)
[2018-11-18] MEDS ORDERED: PANTOPRAZOLE SODIUM 20 MG TABLET.DR PO ONE (22:54)
[2018-11-18] MEDS: ALBUTEROL SULFATE/IPRATROPIUM 3 ML NEBU IH PRN (23:42)
[2018-11-18] MEDS ORDERED: hydrOXYzine PAMOATE 25 MG CAPSULE ONE (23:52)
[2018-11-19] MEDS: NORMAL SALINE 1,000 ML IV PRN (03:38)
--- NOTE | 2018-11-19 07:05 | HP ---
Chief Complaint - Chief Complaint Date of Service: 11/19/18 Time of Service: 07:04 Chief Complaint: Shortness of breath History of Present Illness: Josephine is a 58 yo female with COPD and chronic respiratory failure. She reports history of anxiety and chronic pain. She reports feeling more and more short of breath and anxious over the last week. She reports using 5lpm of oxygen at home recently due to worsening shortness of breath. She states this is what she normally uses, although she does not seem certain of this. She does admit that she has difficulty knowing if her breathing is more her COPD or anxiety. In the ER she was 87% on room air, however was able to maintain >95% on just 2lpm of oxygen. Medical History (Last Reviewed 11/18/18 @ 21:19 by Lesia Talavera RN) COPD (chronic obstructive pulmonary disease) Crohn disease Hx of TIA (transient ischemic attack) and stroke Hypertension Hypothyroidism hx of multiple fractures Surgical History: Surgical History (Last Reviewed 11/18/18 @ 21:19 by Lesia Talavera RN) Hx of appendectomy Hx of kidney removal Hx of splenectomy Hx of tonsillectomy Poor historian Family History: Family History (Last Updated 11/18/18 @ 21:19 by Lesia Talavera RN) Brother Liver cancer Sister Breast cancer Mother Throat cancer Social History: Patient Lives/Resources Home Utilized Occupation Unemployed Preferred Language Nepali Do you have any zoroastrianism or Yes: Islam cultural preference? Smoking Status Current every day smoker Have you smoked in the past 12 Yes months Do you dip or chew tobacco No Abuse History No History of abuse Psych History Hx of Anxiety,Hx of Depression,Hx of Bipolar Disorder,Currently on Meds Alcohol Use none Drug Use none No Social History Section defined Review Of Systems (GEN) - Review of Systems Generalized/Overall Review: Absent: Weakness, Chills, Fever, Fatigue EENTM: Present: No Symptoms Reported Respiratory: Present: Cough, Shortness of Breath, Wheezing Cardiac: Absent: Chest Pain, Edema, Palpitations Abdominal: Absent: Nausea, Vomiting, Abdominal Pain, Constipation, Diarrhea Genitourinary: Present: No Symptoms Reported Musculoskeletal: Present: No Symptoms Reported Neurological: Present: No Symptoms Reported Skin: Present: No Symptoms Reported Endocrine: Present: No Symptoms Reported Immunizations: IMMUNIZATION HX Immunizations Up to Date Yes History of Influenza Vaccine Yes Hx Pneumococcal Vaccination Yes Allergies/Adverse Reactions: Allergies Allergy/AdvReac Type Severity Reaction Status Date / Time quetiapine fumarate Allergy Intermediate Hives Verified 11/18/18 18:47 [From Seroquel] risperidone Allergy Intermediate Hives Verified 11/18/18 18:47 codeine [Codeine] AdvReac Mild Vomiting Verified 11/18/18 18:47 Home Medications: HOME MEDICATIONS Aspirin 81 mg PO DAILY 03/31/17 [Last Taken Unknown] Glycopyrrolate/Formoterol Fum [Bevespi Aerosphere Inhaler] 10.7 gm IH BID 03/31/17 [Last Taken Unknown] Levothyroxine Sodium [Levoxyl] 25 mcg PO DAILY 03/31/17 [Last Taken Unknown] Pravastatin Sodium 40 mg PO DAILY 03/31/17 [Last Taken Unknown] Albuterol Sulfate [Proventil Hfa] 2 puff IH Q4H PRN 03/31/18 [Last Taken Unknown] Clonidine HCl [Catapres] 0.1 mg PO BID 03/31/18 [Last Taken Unknown] Fluticasone Propionate [Flovent Hfa] 2 inh IH BID 03/31/18 [Last Taken Unknown] Gabapentin 600 mg PO TID 03/31/18 [Last Taken Unknown] Lurasidone HCl [Latuda] 40 mg PO QPM 03/31/18 [Last Taken Unknown] Meloxicam 15 mg PO DAILY 03/31/18 [Last Taken Unknown] Montelukast Sodium [Singulair] 10 mg PO QPM 03/31/18 [Last Taken Unknown] Omeprazole 20 mg PO DAILY 03/31/18 [Last Taken Unknown] amLODIPine BESYLATE [Norvasc] 10 mg PO DAILY 03/31/18 [Last Taken Unknown] rOPINIRole HCL [Requip] 2 mg PO QPM 03/31/18 [Last Taken Unknown] Albuterol Sulfate/Ipratropium [Duoneb 2.5-0.5MG/3ML Soln] 3 ml IH Q4H PRN #180 nebu 04/01/18 [Last Taken Unknown] Sertraline HCl [Zoloft] 100 mg PO DAILY 09/12/18 [Last Taken Unknown] Benzonatate [Tessalon Perle] 100 mg PO DAILY 11/18/18 [Last Taken Unknown] Fluticasone Furoate [Arnuity Ellipta] 50 mcg INHALATION DAILY 11/18/18 [Last Taken Unknown] Loratadine [Claritin] 10 mg PO DAILY 11/18/18 [Last Taken Unknown] Mirtazapine [Remeron] 30 mg PO DAILY 11/18/18 [Last Taken Unknown] amLODIPine BESYLATE [Norvasc] 5 mg PO DAILY 11/18/18 [Last Taken Unknown] oxyCODONE HCL/ACETAMINOPHEN [Percocet 5 MG/325 MG] 1 tab PO QID PRN 11/18/18 [Last Taken Unknown] Azithromycin [Zithromax] 500 mg PO DAILY #3 tab 11/19/18 [Last Taken Unknown] Buspirone HCl 15 mg PO Q6H PRN #60 tab 11/19/18 [Last Taken Unknown] Fluticasone Propionate [Flonase] 2 spray NS DAILY #1 inhaler 11/19/18 [Last Taken Unknown] predniSONE [Prednisone] 40 mg PO DAILY #14 tab 11/19/18 [Last Taken Unknown] Exam - Exam Vital Signs: Vital Signs - Last Taken Temp 36.6 C 11/19/18 04:21 Pulse 84 11/19/18 04:21 Resp 20 11/19/18 04:21 BP 125/82 11/19/18 04:21 Pulse Ox 94 11/19/18 04:21 Constitutional: Present: Alert, Oriented x3, Cooperative ENT Exam: Present: hearing grossly normal Eye Exam: bilateral eye: normal inspection Respiratory: Present: wheezing Cardiovascular/Chest: Present: no murmur, tachycardia Abdomen: Present: Normal bowel sounds, soft, nontender, nondistended Skin Exam: Present: normal color, warm/dry, no cyanosis Appearance: Present: appropriate appearance, appropriate insight Eye contact: Present: cooperative, good eye contact, increased rate of speech Thoughts: Present: normal thought pattern, no apparent hallucination Diagnostic Studies: Abnormal Lab Results 11/18/18 11/18/18 11/18/18 Range/Units 18:50 19:03 19:03 RBC 3.52 L (4.2-5.4) M/mm3 Hgb 11.4 L (12.5-16.0) gm/dL Hct 33.9 L (37.0-47.0) % MCH 32.4 H (27-31) pg RDW 15.2 H (11.5-14.0) % Monocytes % 16.7 H (0.0-9) % Eosinophils % 5.1 H (0.0-3.0) % Monocytes # 1.5 H (0.0-1.0) k/mm3 pCO2 51.1 H (32.0-45.0) mmHg Total CO2 28.4 H (19.0-24.0) mmol/L ABG pH 7.34 L (7.35-7.45) Chloride 96 L (97-106) mmol/L Microbiology 11/18/18 20:00 Gram Stain - Final Sputum Laboratory Results WBC 8.9 K/mm3 (4.0-10.5) 11/18/18 19:03 RBC 3.52 M/mm3 (4.2-5.4) L 11/18/18 19:03 Hgb 11.4 gm/dL (12.5-16.0) L 11/18/18 19:03 Hct 33.9 % (37.0-47.0) L 11/18/18 19:03 MCV 96.3 fl (78-100) 11/18/18 19:03 MCH 32.4 pg (27-31) H 11/18/18 19:03 MCHC 33.6 g/dl (32-36) 11/18/18 19:03 RDW 15.2 % (11.5-14.0) H 11/18/18 19:03 Plt Count 404 K/mm3 (150-450) 11/18/18 19:03 MPV 9.2 fl (8-12.5) 11/18/18 19:03 Immature Gran % (Auto) 0.20 % (0.001-0.429) 11/18/18 19:03 Immature Gran # (Auto) 0.02 K/mm3 (0.000-0.0310) 11/18/18 19:03 Neutrophils % 44.1 % (42-75.0) 11/18/18 19:03 Lymphocytes % 33.2 % (20-51) 11/18/18 19:03 Monocytes % 16.7 % (0.0-9) H 11/18/18 19:03 Eosinophils % 5.1 % (0.0-3.0) H 11/18/18 19:03 Basophils % 0.7 % (0.0-1.0) 11/18/18 19:03 Nucleated RBC % 0.0 k/mm3 (0-1) 11/18/18 19:03 Neutrophils # 3.9 K/mm3 (1.3-6.0) 11/18/18 19:03 Lymphocytes # 2.94 k/mm3 (1.5-3.5) 11/18/18 19:03 Monocytes # 1.5 k/mm3 (0.0-1.0) H 11/18/18 19:03 Eosinophils # 0.5 k/mm3 (0.0-0.7) 11/18/18 19:03 Absolute Basophils 0.1 k/mm3 (0.0-0.1) 11/18/18 19:03 pCO2 51.1 mmHg (32.0-45.0) H 11/18/18 18:50 pO2 83.5 mmHg (83.0-108.0) 11/18/18 18:50 HCO3 26.8 mmol/L (21.0-28.0) 11/18/18 18:50 Total CO2 28.4 mmol/L (19.0-24.0) H 11/18/18 18:50 Base Excess 0.4 mmol/L (-2.0-3.0) 11/18/18 18:50 ABG pH 7.34 (7.35-7.45) L 11/18/18 18:50 ABG O2 Sat (Measured) 95.5 % (94.0-98.0) 11/18/18 18:50 Sodium 137 mmol/L (132-142) 11/18/18 19:03 Plasma Sodium 137 mmol/L (130-142) 11/18/18 19:03 Potassium 3.8 mmol/L (3.4-4.6) 11/18/18 19:03 Chloride 96 mmol/L (97-106) L 11/18/18 19:03 Carbon Dioxide 31.5 mmol/L (24-32.6) 11/18/18 19:03 Anion Gap 13.3 mmol/L (6.8-13.8) 11/18/18 19:03 BUN 12 mg/dL (3-23) 11/18/18 19:03 Creatinine 0.65 mg/dL (0.4-1.4) 11/18/18 19:03 Est GFR (Non-Af Amer) 99 mL/min (60-130) D 11/18/18 19:03 BUN/Creatinine Ratio 18.5 (9.0-21.6) 11/18/18 19:03 Random Glucose 98 mg/dL (70-110) 11/18/18 19:03 Lactic Acid, Venous 0.6 mmol/L (0.4-2.0) 11/18/18 19:03 Calcium 9.4 mg/dL (7.9-10.9) 11/18/18 19:03 Calcium Adj for Albumin 9.2 mg/dL (8.4-10.2) 11/18/18 19:03 Total Bilirubin 0.2 mg/dL (0.0-1.1) 11/18/18 19:03 AST 30 U/L (0-48) 11/18/18 19:03 ALT 21 U/L (19-67) 11/18/18 19:03 Alkaline Phosphatase 107 U/L (50-170) 11/18/18 19:03 Total Protein 7.2 gm/dL (6.2-8.2) 11/18/18 19:03 Albumin 3.8 gm/dl (3.4-5.0) 11/18/18 19:03 Assessment/Plan - Narrative Narrative: Josephine is a 58 yo female with shortness of breath. Unclear if this is more COPD vs anxiety. I am suspecting more anxiety as she has rapid rate of speech without apparent difficulty of breathing. I believe she has also been using more oxygen then she really needs. She states she has been using 5lpm of oxygen at home but she is only needing 2lpm to keeps sats above 95%. Will work on anxiety and monitor respiratory needs. However due to her reported severe shortness of breath will admit to observation. - Assessment/Plan (1) Shortness of breath Problem: Acute (2) Anxiety Problem: Chronic (3) COPD (chronic obstructive pulmonary disease) with acute bronchitis Problem: Acute
[2018-11-19] MEDS ORDERED: LORazepam 1 MG TABLET PO ONE (07:10)
[2018-11-19] MEDS ORDERED: FLUTICASONE PROPIONATE 120 SPRAY INHALER NS SCH (09:00)
[2018-11-19] MEDS ORDERED: predniSONE 20 MG TABLET PO SCH (09:00)
[2018-11-19] MEDS: ALBUTEROL SULFATE/IPRATROPIUM 3 ML NEBU IH PRN (09:59)
--- NOTE | 2018-11-19 13:25 | DS ---
(1) COPD exacerbation Problem: Acute (2) Anxiety Problem: Chronic Description of Stay: Josephine is a 58 yo female that was admitted for shortness of breath secondary to COPD exacerbation and anxiety. She was give breathing treatments and steroids in the ER. She chronically has oxygen at home. She reports using it at 5lpm continuous at home, but I am uncertain of this. She was able to maintain sats >90% on just 2lpm in the hospital. Chest xray and labs look good and clinically anxiety appears to be a large component of her shortness of breath. She was given lorazepam in the hospital for anxiety, which helped. She reports being unable to use lorazepam on outpatient as she is followed by the pain clinic and is on oxycodone. She takes hydroxyzine for anxiety, but it does not help. She converted from IV solumedrol to oral prednisone. As she is maintaining oxygen and overall looks well, will discharge to home. May consider buspirone to try for anxiety. Will not prescribe lorazepam as she has been told by the pain clinic they do not want her to be on benzodiazapines at home. She had reported being out of oxygen at home. We had medical supplier deliver oxygen prior to discharge. Procedures Performed: none Results and Findings: Lab Pending Results 11/18/18 18:50: pCO2 51.1 H, pO2 83.5, HCO3 26.8, Total CO2 28.4 H, Base Excess 0.4, ABG pH 7.34 L, ABG O2 Sat (Measured) 95.5 11/18/18 19:03: WBC 8.9, RBC 3.52 L, Hgb 11.4 L, Hct 33.9 L, MCV 96.3, MCH 32.4 H, MCHC 33.6, RDW 15.2 H, Plt Count 404, MPV 9.2, Immature Gran % (Auto) 0.20, Immature Gran # (Auto) 0.02, Neutrophils % 44.1, Lymphocytes % 33.2, Monocytes % 16.7 H, Eosinophils % 5.1 H, Basophils % 0.7, Nucleated RBC % 0.0, Neutrophils # 3.9, Lymphocytes # 2.94, Monocytes # 1.5 H, Eosinophils # 0.5, Absolute Basophils 0.1 11/18/18 19:03: Lactic Acid, Venous 0.6 11/18/18 19:03: Sodium 137, Plasma Sodium 137, Potassium 3.8, Chloride 96 L, Carbon Dioxide 31.5, Anion Gap 13.3, BUN 12, Creatinine 0.65, Est GFR (Non-Af Amer) 99 D, BUN/Creatinine Ratio 18.5, Random Glucose 98, Calcium 9.4, Calcium Adj for Albumin 9.2, Total Bilirubin 0.2, AST 30, ALT 21, Alkaline Phosphatase 107, Total Protein 7.2, Albumin 3.8 Discharge Location: Home Disposition: Home Health Service Condition: Stable Discharge Activity: Activity as tolerated Discharge Diet: General/regular food Referrals: Betty Marshall FNP [Primary Care Provider] - One Week Problem Oriented Discharge Instructions to Patient/Family: Chronic Obstructive Pulmonary Disease Exacerbation, [id number], Generalized Anxiety Disorder Additional Patient Instructions (free text): Resume services with [facility] with all prior services. May try buspirone instead of hydroxyzine for anxiety. I am unable to send lorazepam for anxiety because of the rules of the pain clinic. Use only 2lpm of oxygen at home. Prescriptions (Any new or edited meds): Azithromycin [Zithromax] 500 mg PO DAILY #3 tab Buspirone HCl 15 mg PO Q6H PRN #60 tablet PRN Reason: Anxiety Fluticasone Propionate [Flonase] 2 spray NS DAILY #1 inhaler predniSONE [Prednisone] 40 mg PO DAILY #14 tablet Complete Home Medications List: Complete Home Medication List: Aspirin 81 mg PO DAILY 03/31/17 Glycopyrrolate/Formoterol Fum [Bevespi Aerosphere Inhaler] 10.7 gm IH BID 03/31/17 Levothyroxine Sodium [Levoxyl] 25 mcg PO DAILY 03/31/17 Pravastatin Sodium 40 mg PO DAILY 03/31/17 Albuterol Sulfate [Proventil Hfa] 2 puff IH Q4H PRN 03/31/18 Clonidine HCl [Catapres] 0.1 mg PO BID 03/31/18 Fluticasone Propionate [Flovent Hfa] 2 inh IH BID 03/31/18 Gabapentin 600 mg PO TID 03/31/18 Lurasidone HCl [Latuda] 40 mg PO QPM 03/31/18 Meloxicam 15 mg PO DAILY 03/31/18 Montelukast Sodium [Singulair] 10 mg PO QPM 03/31/18 Omeprazole 20 mg PO DAILY 03/31/18 amLODIPine BESYLATE [Norvasc] 10 mg PO DAILY 03/31/18 rOPINIRole HCL [Requip] 2 mg PO QPM 03/31/18 Albuterol Sulfate/Ipratropium [Duoneb 2.5-0.5MG/3ML Soln] 3 ml IH Q4H PRN #180 nebu 04/01/18 Sertraline HCl [Zoloft] 100 mg PO DAILY 09/12/18 Benzonatate [Tessalon Perle] 100 mg PO DAILY 11/18/18 Fluticasone Furoate [Arnuity Ellipta] 50 mcg INHALATION DAILY 11/18/18 Loratadine [Claritin] 10 mg PO DAILY 11/18/18 Mirtazapine [Remeron] 30 mg PO DAILY 11/18/18 amLODIPine BESYLATE [Norvasc] 5 mg PO DAILY 11/18/18 oxyCODONE HCL/ACETAMINOPHEN [Percocet 5 MG/325 MG] 1 tab PO QID PRN 11/18/18 Azithromycin [Zithromax] 500 mg PO DAILY #3 tab 11/19/18 Buspirone HCl 15 mg PO Q6H PRN #60 tablet 11/19/18 Fluticasone Propionate [Flonase] 2 spray NS DAILY #1 inhaler 11/19/18 predniSONE [Prednisone] 40 mg PO DAILY #14 tablet 11/19/18
[2018-11-19 14:14] VITALS: BP 150/99
== END 2018-11-19 14:25 | disposition home health service (06) ==
LOC: MS 18:33 → ER 18:33 → MS 20:50
PROVIDERS: ADMIT Family Medicine; ATTEND Family Medicine
CPT/HCPCS: 36415; 36600; 71010; 71045; 80053; 82803; 83605; 85025; 87040; 87070; 87077; 87081; 87186; 87205; 93005; 94640; 94664; 96361; 96365; 96375; 99285; G0378

== ENCOUNTER 2018-12-09 20:23 | Observation (INO) ==
[2018-12-09] MEDS ORDERED: ALBUTEROL SULFATE/IPRATROPIUM 3 ML NEBU IH ONE (20:49)
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
[2018-12-09 21:09] LABS: Methemoglobin % 0.2 % (0.41-1.15)
[2018-12-09 21:10] LABS: Carboxyhemoglobin % 6.6 % (0.5-1.5)
[2018-12-09 21:13] LABS: Hematocrit 38.1 % (37.0-47.0); Hemoglobin 12.9 gm/dL (12.5-16.0); Mean Cell Volume 94.8 fl (78-100); Mean Corpuscular Hemoglobin 32.1 pg (27-31); Mean Corpuscular Hgb Conc 33.9 g/dl (32-36); Mean Platelet Volume 8.9 fl (8-12.5); Neutrophil % 43.7 % (42-75.0); Platelet Count 335 K/mm3 (150-450); Red Blood Count 4.02 M/mm3 (4.2-5.4); Red Cell Distribution Width 14.5 % (11.5-14.0); White Blood Count 9.2 K/mm3 (4.0-10.5)
[2018-12-09 21:42] LABS: Albumin * 3.9 gm/dl (3.4-5.0); Anion Gap 12.7 mmol/L (6.8-13.8); Bilirubin, Total 0.2 mg/dL (0.0-1.1); Calcium * 8.2 mg/dL (7.9-10.9); Potassium 3.7 mmol/L (3.4-4.6); Total Protein 6.8 gm/dL (6.2-8.2); Troponin I 0.033 ng/mL (0.00-0.10)
[2018-12-10 02:09] LABS: Urine Bilirubin Negative (NEGATIVE); Urine Blood Negative /ul (NEGATIVE); Urine Ketone Negative (NEGATIVE); Urine Nitrite Negative (NEGATIVE); Urine Protein 100 mg/dL (NEGATIVE); Urine Specific Gravity 1.025 SP.GR. (1.005-1.010); Urine Urobilinogen Normal (NORMAL)
[2018-12-10 02:20] LABS: Urine Appearance Clear (CLEAR); Urine Bacteria TRACE; Urine Color Yellow; Urine RBC None Seen /hpf (0-5); Urine WBC None Seen /hpf (0-5)
[2018-12-10] MEDS: oxyCODONE HCL/ACETAMINOPHEN 1 TAB TABLET PO PRN ×2 (09:01→16:43)
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
[2018-12-10 20:14] VITALS: BP 148/91
== END 2018-12-10 20:35 | disposition home or self-care (01) ==
LOC: MS 20:23 → ER 20:23 → MS 12-10 00:51
PROVIDERS: ADMIT Internal Medicine; ATTEND Family Medicine
CPT/HCPCS: 36415; 36600; 71020; 71046; 80053; 81001; 82375; 82803; 84484; 85025; 87081; 93005; 94640; 94664; 97161; 99285; G0378

== ENCOUNTER 2019-02-17 17:34 | Inpatient (IN) ==
[2019-02-17] MEDS ORDERED: ALBUTEROL SULFATE 2.5 MG/0.5 ML VIAL.NEB IH ONE (17:57)
[2019-02-17] MEDS ORDERED: METHYLPREDNISOLONE SOD SUCC/PF 125 MG/2 ML VIAL IV ONE (17:57)
[2019-02-17 18:08] LABS: Hematocrit 39.9 % (37.0-47.0); Hemoglobin 13.9 gm/dL (12.5-16.0); Mean Cell Volume 93.2 fl (78-100); Mean Corpuscular Hemoglobin 32.5 pg (27-31); Mean Corpuscular Hgb Conc 34.8 g/dl (32-36); Mean Platelet Volume 9.4 fl (8-12.5); Neutrophil # 3.9 K/mm3 (1.3-6.0); Neutrophil % 65.2 % (42-75.0); Platelet Count 331 K/mm3 (150-450); Red Blood Count 4.28 M/mm3 (4.2-5.4); Red Cell Distribution Width 14.2 % (11.5-14.0)
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
[2019-02-17 18:28] LABS: ALT 22 U/L (19-67); AST 50 U/L (0-48); Albumin * 4.3 gm/dl (3.4-5.0); Alkaline Phosphatase * 162 U/L (50-170); Anion Gap 27.1 mmol/L (6.8-13.8); BNP * 260 pg/mL (5-205); BUN/Creatinine Ratio 24.7 (9.0-21.6); Bilirubin, Total 0.4 mg/dL (0.0-1.1); Blood Urea Nitrogen 18 mg/dL (3-23); Ca. Corrected For Albumin 8.5 mg/dL (8.4-10.2); Calcium * 9.1 mg/dL (7.9-10.9); Carbon Dioxide 16.2 mmol/L (24-32.6); Chloride 87 mmol/L (97-106); Glucose * 61 mg/dL (70-110); Potassium 4.3 mmol/L (3.4-4.6); Sodium 126 mmol/L (132-142); Total Protein 7.9 gm/dL (6.2-8.2); Troponin I Less than 0.017 ng/mL (0.00-0.10)
[2019-02-17] MEDS ORDERED: ALBUTEROL SULFATE 2.5 MG/0.5 ML VIAL.NEB IH PRN (19:14)
[2019-02-17] MEDS: AZITHROMYCIN 500 MG in DEXTROSE 5 % IN WATER 250 ML IV SCH ×2 (19:57)
[2019-02-17] MEDS: METHYLPREDNISOLONE SOD SUCC/PF 40 MG/ML VIAL IV SCH (20:34)
[2019-02-17] MEDS ORDERED: ONDANSETRON HCL/PF 2 MG/ML VIAL IV PRN (21:07)
[2019-02-17] MEDS ORDERED: ALBUTEROL SULFATE/IPRATROPIUM 3 ML NEBU IH PRN (22:43)
[2019-02-17] MEDS ORDERED: BENZONATATE 100 MG CAPSULE PO PRN (22:47)
[2019-02-17] MEDS ORDERED: busPIRone HCL 5 MG TABLET PO PRN (23:15)
[2019-02-17] MEDS: MIRTAZAPINE 15 MG TABLET PO SCH (23:34)
[2019-02-17] MEDS: GABAPENTIN 300 MG CAPSULE PO SCH (23:34)
[2019-02-17] MEDS: rOPINIRole HCL 1 MG TABLET PO SCH (23:35)
--- NOTE | 2019-02-17 23:46 | HP ---
Chief Complaint - Chief Complaint Date of Service: 02/17/19 Time of Service: 23:45 Chief Complaint: Shortness of breath History of Present Illness: Josephine is a 58 yo female that presents to the [facility] ER today with shortness of breath, cough, fatigue, and dizziness. She has a history of chronic respiratory failure secondary to COPD. She uses oxygen at night and with activities at 2lpm. She has progressively been getting more short of breath over the last week. She denies fever or chills. In the ER she was evaluated and chest xray shows COPD without evidence of pneumonia. Bloodwork also showed a sodium of 125. She Medical History (Updated 02/17/19 @ 19:13 by Floyd Oneal DO) COPD (chronic obstructive pulmonary disease) Crohn disease Hx of TIA (transient ischemic attack) and stroke Hypertension Hypothyroidism hx of multiple fractures Surgical History: Surgical History (Updated 12/10/18 @ 13:20 by Poly Suh MD) Hx of appendectomy Hx of kidney removal Hx of splenectomy Hx of tonsillectomy Poor historian Family History: Family History (Updated 11/18/18 @ 21:19 by Lesia Talavera RN) Brother Liver cancer Sister Breast cancer Mother Throat cancer Social History: Patient Lives/Resources Home Utilized Occupation disabled Preferred Language Luxembourgish Do you have any taoism or Yes: Adventism cultural preference? Smoking Status Former smoker Have you smoked in the past 12 Yes: 2 years months Abuse History No History of abuse Psych History Hx of Anxiety,Hx of Depression,Hx of Bipolar Disorder,Currently on Meds Alcohol Use none No Social History Section defined Review Of Systems (GEN) - Review of Systems Generalized/Overall Review: Present: Weakness. Absent: Chills, Fever EENTM: Present: No Symptoms Reported Respiratory: Present: Cough, Shortness of Breath Cardiac: Absent: Chest Pain, Edema, Palpitations Abdominal: Absent: Nausea, Vomiting Genitourinary: Present: No Symptoms Reported Musculoskeletal: Present: No Symptoms Reported Neurological: Present: Anxiety, Tremors, Weakness Skin: Present: No Symptoms Reported Immunizations: IMMUNIZATION HX Immunizations Up to Date Yes History of Influenza Vaccine Yes Hx Pneumococcal Vaccination Yes Allergies/Adverse Reactions: Allergies Allergy/AdvReac Type Severity Reaction Status Date / Time quetiapine fumarate Allergy Intermediate Hives Verified 02/17/19 21:25 [From Seroquel] risperidone Allergy Intermediate Hives Verified 02/17/19 21:25 codeine [Codeine] AdvReac Mild Vomiting Verified 02/17/19 21:25 Home Medications: HOME MEDICATIONS Aspirin 81 mg PO DAILY 03/31/17 [Last Taken Unknown] Glycopyrrolate/Formoterol Fum [Bevespi Aerosphere Inhaler] 10.7 gm IH BID 03/31/17 [Last Taken Unknown] Levothyroxine Sodium [Levoxyl] 25 mcg PO DAILY 03/31/17 [Last Taken Unknown] Pravastatin Sodium 40 mg PO QAM 03/31/17 [Last Taken Unknown] Albuterol Sulfate [Proventil Hfa] 2 puff IH Q4H PRN 03/31/18 [Last Taken Unknown] Clonidine HCl [Catapres] 0.1 mg PO BID 03/31/18 [Last Taken Unknown] Fluticasone Propionate [Flovent Hfa] 2 inh IH BID 03/31/18 [Last Taken Unknown] Gabapentin 600 mg PO TID 03/31/18 [Last Taken Unknown] Lurasidone HCl [Latuda] 40 mg PO QPM 03/31/18 [Last Taken Unknown] Meloxicam 15 mg PO DAILY 03/31/18 [Last Taken Unknown] Montelukast Sodium [Singulair] 10 mg PO QPM 03/31/18 [Last Taken Unknown] Omeprazole 20 mg PO DAILY 03/31/18 [Last Taken Unknown] amLODIPine BESYLATE [Norvasc] 10 mg PO DAILY 03/31/18 [Last Taken Unknown] rOPINIRole HCL [Requip] 2 mg PO QPM 03/31/18 [Last Taken Unknown] Albuterol Sulfate/Ipratropium [Duoneb 2.5-0.5MG/3ML Soln] 3 ml IH Q4H PRN #180 nebu 04/01/18 [Last Taken Unknown] Sertraline HCl [Zoloft] 100 mg PO QAM 09/12/18 [Last Taken Unknown] Fluticasone Furoate [Arnuity Ellipta] 50 mcg INHALATION DAILY 11/18/18 [Last Taken Unknown] Loratadine [Claritin] 10 mg PO DAILY 11/18/18 [Last Taken Unknown] Mirtazapine [Remeron] 30 mg PO QPM 11/18/18 [Last Taken Unknown] Buspirone HCl 15 mg PO Q6H PRN #60 tab 11/19/18 [Last Taken Unknown] Fluticasone Propionate [Flonase] 2 spray NS DAILY #1 inhaler 11/19/18 [Last Taken Unknown] Exam - Exam Vital Signs: Vital Signs - Last Taken Temp 36.4 C 02/17/19 23:13 Pulse 101 H 02/17/19 23:13 Resp 28 H 02/17/19 23:13 BP 157/88 H 02/17/19 23:13 Pulse Ox 95 02/17/19 23:13 Constitutional: Present: Alert, Oriented x3, Cooperative ENT Exam: Present: hearing grossly normal Eye Exam: bilateral eye: normal inspection Respiratory: Present: decreased breath sounds, wheezing Cardiovascular/Chest: Present: regular rate, rhythm, no murmur Abdomen: Present: Normal bowel sounds, soft, nontender, nondistended, no rebound tenderness, no hepatospenomegaly Extremity: Present: normal inspection, normal capillary refill Skin Exam: Present: normal color, warm/dry, no cyanosis Appearance: Present: appropriate appearance, appropriate insight Eye contact: Present: cooperative, good eye contact, increased rate of speech Diagnostic Studies: Abnormal Lab Results 02/17/19 02/17/19 02/17/19 Range/Units 18:00 18:00 18:05 MCH 32.5 H (27-31) pg RDW 14.2 H (11.5-14.0) % Basophils % 1.3 H (0.0-1.0) % pCO2 28.8 L (32.0-45.0) mmHg HCO3 15.0 L (21.0-28.0) mmol/L Total CO2 15.9 L (19.0-24.0) mmol/L Base Excess -9.4 L (-2.0-3.0) mmol/L ABG pH 7.34 L (7.35-7.45) Sodium 126 L (132-142) mmol/L Plasma Sodium 125 L (130-142) mmol/L Chloride 87 L (97-106) mmol/L Carbon Dioxide 16.2 L (24-32.6) mmol/L Anion Gap 27.1 H (6.8-13.8) mmol/L BUN/Creatinine Ratio 24.7 H (9.0-21.6) Random Glucose 61 L (70-110) mg/dL AST 50 H (0-48) U/L B-Natriuretic Peptide 260 H (5-205) pg/mL Laboratory Results WBC 6.0 K/mm3 (4.0-10.5) 02/17/19 18:00 RBC 4.28 M/mm3 (4.2-5.4) 02/17/19 18:00 Hgb 13.9 gm/dL (12.5-16.0) 02/17/19 18:00 Hct 39.9 % (37.0-47.0) 02/17/19 18:00 MCV 93.2 fl (78-100) 02/17/19 18:00 MCH 32.5 pg (27-31) H 02/17/19 18:00 MCHC 34.8 g/dl (32-36) 02/17/19 18:00 RDW 14.2 % (11.5-14.0) H 02/17/19 18:00 Plt Count 331 K/mm3 (150-450) 02/17/19 18:00 MPV 9.4 fl (8-12.5) 02/17/19 18:00 Immature Gran % (Auto) 0.30 % (0.001-0.429) 02/17/19 18:00 Immature Gran # (Auto) 0.02 K/mm3 (0.000-0.0310) 02/17/19 18:00 65.2 % (42-75.0) 02/17/19 18:00 25.8 % (20-51) 02/17/19 18:00 7.2 % (0.0-9) 02/17/19 18:00 0.2 % (0.0-3.0) 02/17/19 18:00 1.3 % (0.0-1.0) H 02/17/19 18:00 Nucleated RBC % 0.0 k/mm3 (0-1) 02/17/19 18:00 3.9 K/mm3 (1.3-6.0) 02/17/19 18:00 1.55 k/mm3 (1.5-3.5) 02/17/19 18:00 0.4 k/mm3 (0.0-1.0) 02/17/19 18:00 0.0 k/mm3 (0.0-0.7) 02/17/19 18:00 Absolute Basophils 0.1 k/mm3 (0.0-0.1) 02/17/19 18:00 pCO2 28.8 mmHg (32.0-45.0) L 02/17/19 18:05 pO2 83.0 mmHg (83.0-108.0) 02/17/19 18:05 HCO3 15.0 mmol/L (21.0-28.0) L 02/17/19 18:05 Total CO2 15.9 mmol/L (19.0-24.0) L 02/17/19 18:05 Base Excess -9.4 mmol/L (-2.0-3.0) L 02/17/19 18:05 ABG pH 7.34 (7.35-7.45) L 02/17/19 18:05 ABG O2 Sat (Measured) 95.8 % (94.0-98.0) 02/17/19 18:05 Sodium 126 mmol/L (132-142) L 02/17/19 18:00 125 mmol/L (130-142) L 02/17/19 18:00 Potassium 4.3 mmol/L (3.4-4.6) 02/17/19 18:00 Chloride 87 mmol/L (97-106) L 02/17/19 18:00 Carbon Dioxide 16.2 mmol/L (24-32.6) L 02/17/19 18:00 27.1 mmol/L (6.8-13.8) H 02/17/19 18:00 BUN 18 mg/dL (3-23) 02/17/19 18:00 0.73 mg/dL (0.4-1.4) 02/17/19 18:00 Est GFR (Non-Af Amer) 87 mL/min (60-130) D 02/17/19 18:00 24.7 (9.0-21.6) H 02/17/19 18:00 61 mg/dL (70-110) L 02/17/19 18:00 Calcium 9.1 mg/dL (7.9-10.9) 02/17/19 18:00 Calcium Adj for Albumin 8.5 mg/dL (8.4-10.2) 02/17/19 18:00 0.4 mg/dL (0.0-1.1) 02/17/19 18:00 AST 50 U/L (0-48) H 02/17/19 18:00 ALT 22 U/L (19-67) 02/17/19 18:00 162 U/L (50-170) 02/17/19 18:00 Less than 0.017 ng/mL (0.00-0.10) 02/17/19 18:00 B-Natriuretic Peptide 260 pg/mL (5-205) H 02/17/19 18:00 7.9 gm/dL (6.2-8.2) 02/17/19 18:00 4.3 gm/dl (3.4-5.0) 02/17/19 18:00 Assessment/Plan - Narrative Narrative: Josephine is a 58 yo female with significant symptomatic hyponatremia of 125. She believes she has been drinking fluids like normal. She denies edema and there is no evidence of pulmonary vascular congestion so I suspect this is a hypovolumic hyponatremia. I will treat this with IV fluids and monitor sodium. She has symptoms secondary to her hyponatremia that include weakness, dizziness, and fatigue. She also appears to have acute exacerbation of COPD, will treat with rocephin, azithromycin, prednisone, and albuterol/ipratroprium nebulizer. Will continue oxygen at 2lpm continuous at this time which is typically what she uses at home, although at home it is only at night and occasionally during the day. Due to her symptomatic hyponatremia and COPD exacerbation will admit to acute inpatient status as it will take >2 midnights to correct sodium and improve breathing. - Assessment/Plan (1) Hyponatremia Problem: Acute (2) COPD with exacerbation Problem: Acute (3) Weakness generalized Problem: Resolved
[2019-02-18] MEDS: METHYLPREDNISOLONE SOD SUCC/PF 40 MG/ML VIAL IV SCH (00:38)
[2019-02-18 00:50] LABS: ALT 20 U/L (19-67); AST 36 U/L (0-48); Alkaline Phosphatase * 152 U/L (50-170); Anion Gap 24.9 mmol/L (6.8-13.8); BUN/Creatinine Ratio 24.5 (9.0-21.6); Bilirubin, Total 0.6 mg/dL (0.0-1.1); Blood Urea Nitrogen 23 mg/dL (3-23); Ca. Corrected For Albumin 8.5 mg/dL (8.4-10.2); Calcium * 8.8 mg/dL (7.9-10.9); Carbon Dioxide 18.1 mmol/L (24-32.6); Chloride 86 mmol/L (97-106); Glucose * 87 mg/dL (70-110); Sodium 125 mmol/L (132-142); Total Protein 7.6 gm/dL (6.2-8.2)
[2019-02-18] MEDS: LEVOTHYROXINE SODIUM 25 MCG TABLET PO SCH (07:59)
[2019-02-18] MEDS: PANTOPRAZOLE SODIUM 20 MG TABLET.DR PO SCH (07:59)
[2019-02-18] MEDS: METHYLPREDNISOLONE SOD SUCC/PF 125 MG/2 ML VIAL IV SCH ×3 (08:00→18:39)
[2019-02-18] MEDS ORDERED: ASPIRIN/ACETAMINOPHEN/CAFFEINE 1 TAB TAB PO PRN (08:35)
[2019-02-18] MEDS: BUDESONIDE 0.5 MG/2 ML VIAL.NEB IH SCH ×2 (08:41→18:09)
[2019-02-18] MEDS ORDERED: FLUTICASONE FUROATE 50 MCG Inhalation SCH (09:00)
[2019-02-18] MEDS: LORATADINE 10 MG TABLET PO SCH (09:00)
[2019-02-18] MEDS ORDERED: FORMOTEROL FUMARATE 20 MCG/2 ML VIAL IH SCH (09:00)
[2019-02-18] MEDS: FLUTICASONE PROPIONATE 120 SPRAY INHALER NS SCH (09:00)
[2019-02-18] MEDS: ASPIRIN 81 MG TAB.CHEW PO SCH (09:00)
[2019-02-18] MEDS ORDERED: FLUTICASONE PROPIONATE IH SCH (09:00)
[2019-02-18] MEDS ORDERED: GLYCOPYRROLATE IH SCH (09:00)
[2019-02-18] MEDS ORDERED: FORMOTEROL FUM IH SCH (09:00)
[2019-02-18] MEDS: TIOTROPIUM BROMIDE 5 CAP INHALER IH SCH (09:00)
[2019-02-18] MEDS: GABAPENTIN 300 MG CAPSULE PO SCH ×3 (09:00→16:57)
[2019-02-18] MEDS ORDERED: [UNRECOGNIZED DRUG - OTHER] IH SCH (09:00)
[2019-02-18] MEDS: MELOXICAM 15 MG TABLET PO SCH (09:01)
[2019-02-18] MEDS: CLONIDINE HCL 0.1 MG TABLET PO SCH ×2 (09:01→21:33)
[2019-02-18] MEDS: SIMVASTATIN 20 MG TABLET PO SCH (09:01)
[2019-02-18] MEDS: amLODIPine BESYLATE 10 MG TABLET PO SCH (09:01)
[2019-02-18] MEDS: SERTRALINE HCL 100 MG TABLET PO SCH (09:02)
[2019-02-18 10:56] LABS: Hemoglobin 11.5 gm/dL (12.5-16.0); Mean Cell Volume 92.4 fl (78-100); Mean Corpuscular Hemoglobin 32.2 pg (27-31); Mean Corpuscular Hgb Conc 34.8 g/dl (32-36); Mean Platelet Volume 9.6 fl (8-12.5); Neutrophil # 1.7 K/mm3 (1.3-6.0); Neutrophil % 74.1 % (42-75.0); Platelet Count 311 K/mm3 (150-450); Red Blood Count 3.57 M/mm3 (4.2-5.4); Red Cell Distribution Width 13.8 % (11.5-14.0); White Blood Count 2.3 K/mm3 (4.0-10.5)
[2019-02-18 11:15] LABS: Albumin * 3.9 gm/dl (3.4-5.0); Anion Gap 19.8 mmol/L (6.8-13.8); BUN/Creatinine Ratio 28.5 (9.0-21.6); Bilirubin, Total 0.6 mg/dL (0.0-1.1); Ca. Corrected For Albumin 8.4 mg/dL (8.4-10.2); Calcium * 8.6 mg/dL (7.9-10.9); Carbon Dioxide 22.7 mmol/L (24-32.6); Potassium 4.5 mmol/L (3.4-4.6)
[2019-02-18] MEDS: rOPINIRole HCL 1 MG TABLET PO SCH (16:57)
[2019-02-18] MEDS: NORMAL SALINE 1,000 ML IV PRN (16:59)
[2019-02-18] MEDS ORDERED: MONTELUKAST SODIUM 10 MG TABLET PO SCH (17:00)
[2019-02-18] MEDS ORDERED: LURASIDONE HCL 80 MG TABLET PO SCH (17:00)
[2019-02-18] MEDS: ASPIRIN/ACETAMINOPHEN/CAFFEINE 1 TAB TAB PO PRN (17:38)
[2019-02-18] MEDS: FORMOTEROL FUMARATE 20 MCG/2 ML VIAL IH SCH (18:09)
[2019-02-18] MEDS: AZITHROMYCIN 500 MG in DEXTROSE 5 % IN WATER 250 ML IV SCH ×2 (18:43)
[2019-02-18] MEDS: MIRTAZAPINE 15 MG TABLET PO SCH (21:34)
--- NOTE | 2019-02-18 23:47 | PN ---
Subjective - Date and Time Seen Date: 02/18/19 Time: 12:30 Subjective Narrative: Josephine reports her breathing is a little bit better today. She will reports fatigue, anxiety, and weakness. Sodium improved to 127, but still low. Objective - Vitals Vitals: Last Vital Signs Temp 36.8 C 02/18/19 22:40 Pulse 72 02/18/19 22:40 Resp 20 02/18/19 22:40 BP 104/76 02/18/19 22:40 Pulse Ox 92 L 02/18/19 22:40 - Abnormal Lab Findings Abnormal Lab Findings: Abnormal Lab Results 02/18/19 02/18/19 02/18/19 Range/Units 00:35 10:44 10:44 WBC 2.3 L D (4.0-10.5) K/mm3 RBC 3.57 L (4.2-5.4) M/mm3 Hgb 11.5 L (12.5-16.0) gm/dL Hct 33.0 L (37.0-47.0) % MCH 32.2 H (27-31) pg Immature Gran % (Auto) 0.00 L (0.001-0.429) % Lymphocytes # 0.48 L (1.5-3.5) k/mm3 Sodium 125 L 126 L (132-142) mmol/L Plasma Sodium 125 L 127 L (130-142) mmol/L Chloride 86 L 88 L (97-106) mmol/L Carbon Dioxide 18.1 L 22.7 L (24-32.6) mmol/L Anion Gap 24.9 H 19.8 H (6.8-13.8) mmol/L BUN 45 H D (3-23) mg/dL Creatinine 1.58 H D (0.4-1.4) mg/dL Est GFR (Non-Af Amer) 36 L D (60-130) mL/min BUN/Creatinine Ratio 24.5 H 28.5 H (9.0-21.6) Random Glucose 164 H D (70-110) mg/dL - Exam Constitutional: Present: Alert, Oriented x3, Cooperative ENT Exam: Present: hearing grossly normal Respiratory: Present: decreased breath sounds, wheezing Cardiovascular/Chest: Present: regular rate, rhythm, no murmur Abdomen: Present: Normal bowel sounds, soft, nontender, nondistended Skin Exam: Present: normal color, warm/dry, no cyanosis Assessment/Plan Plan Narrative: Sodium remains low at 127, continue IV fluids. COPD exacerbation improved, continue rocephin, azithromycin, prednisone, and breathing treatments. Anticipate discharge to home tomorrow if labs corrected. - Problems/Diagnosis (1) COPD with exacerbation Problem: Acute (2) Hyponatremia Problem: Acute (3) Weakness generalized Problem: Resolved
[2019-02-19] MEDS: METHYLPREDNISOLONE SOD SUCC/PF 125 MG/2 ML VIAL IV SCH ×2 (01:35→08:21)
[2019-02-19] MEDS: ASPIRIN/ACETAMINOPHEN/CAFFEINE 1 TAB TAB PO PRN ×2 (01:41→08:20)
[2019-02-19] MEDS: NORMAL SALINE 1,000 ML IV PRN (03:41)
[2019-02-19] MEDS: BUDESONIDE 0.5 MG/2 ML VIAL.NEB IH SCH (05:59)
[2019-02-19] MEDS: FORMOTEROL FUMARATE 20 MCG/2 ML VIAL IH SCH (06:03)
[2019-02-19] MEDS: TIOTROPIUM BROMIDE 5 CAP INHALER IH SCH (08:20)
[2019-02-19] MEDS: FLUTICASONE PROPIONATE 120 SPRAY INHALER NS SCH (08:20)
[2019-02-19] MEDS: SERTRALINE HCL 100 MG TABLET PO SCH (08:21)
[2019-02-19] MEDS: GABAPENTIN 300 MG CAPSULE PO SCH (08:21)
[2019-02-19] MEDS: ASPIRIN 81 MG TAB.CHEW PO SCH (08:21)
[2019-02-19] MEDS: PANTOPRAZOLE SODIUM 20 MG TABLET.DR PO SCH (08:21)
[2019-02-19] MEDS: CLONIDINE HCL 0.1 MG TABLET PO SCH (08:21)
[2019-02-19] MEDS: LEVOTHYROXINE SODIUM 25 MCG TABLET PO SCH (08:21)
[2019-02-19] MEDS: LORATADINE 10 MG TABLET PO SCH (08:22)
[2019-02-19] MEDS: amLODIPine BESYLATE 10 MG TABLET PO SCH (08:22)
[2019-02-19] MEDS: MELOXICAM 15 MG TABLET PO SCH (08:22)
[2019-02-19] MEDS: SIMVASTATIN 20 MG TABLET PO SCH (08:22)
[2019-02-19 12:02] LABS: Hematocrit 32.5 % (37.0-47.0); Hemoglobin 11.1 gm/dL (12.5-16.0); Mean Cell Volume 94.2 fl (78-100); Mean Corpuscular Hemoglobin 32.2 pg (27-31); Mean Corpuscular Hgb Conc 34.2 g/dl (32-36); Neutrophil # 12.5 K/mm3 (1.3-6.0); Neutrophil % 91.1 % (42-75.0); Platelet Count 293 K/mm3 (150-450); Red Blood Count 3.45 M/mm3 (4.2-5.4); Red Cell Distribution Width 14.9 % (11.5-14.0); White Blood Count 13.7 K/mm3 (4.0-10.5)
[2019-02-19 12:20] LABS: Albumin * 3.6 gm/dl (3.4-5.0); BUN/Creatinine Ratio 37.7 (9.0-21.6); Bilirubin, Total 0.3 mg/dL (0.0-1.1); Ca. Corrected For Albumin 8.2 mg/dL (8.4-10.2); Calcium * 8.2 mg/dL (7.9-10.9); Total Protein 6.6 gm/dL (6.2-8.2)
[2019-02-19 14:06] VITALS: BP 122/80
--- NOTE | 2019-03-06 11:21 | DS ---
(1) COPD with exacerbation Problem: Acute (2) Hyponatremia Problem: Acute (3) Weakness generalized Problem: Resolved Description of Stay: Josephine is a 58 yo female that was admitted for hyponatremia and COPD exacerbation. She was treated with IV fluids, antibiotics, nebulizer, and steroids. She was gradually improving, but was very anxious. Prior to being discharged to home she left the hospital against medical advice because she stated she had to go home and move out of her house. Procedures Performed: none Results and Findings: Lab Pending Results 02/17/19 18:00: WBC 6.0, RBC 4.28, Hgb 13.9, Hct 39.9, MCV 93.2, MCH 32.5 H, MCHC 34.8, RDW 14.2 H, Plt Count 331, MPV 9.4, Immature Gran % (Auto) 0.30, Immature Gran # (Auto) 0.02, Neutrophils % 65.2, Lymphocytes % 25.8, Monocytes % 7.2, Eosinophils % 0.2, Basophils % 1.3 H, Nucleated RBC % 0.0, Neutrophils # 3.9, Lymphocytes # 1.55, Monocytes # 0.4, Eosinophils # 0.0, Absolute Basophils 0.1 02/17/19 18:00: Sodium 126 L, Plasma Sodium 125 L, Potassium 4.3, Chloride 87 L, Carbon Dioxide 16.2 L, Anion Gap 27.1 H, BUN 18, Creatinine 0.73, Est GFR (Non- Af Amer) 87 D, BUN/Creatinine Ratio 24.7 H, Random Glucose 61 L, Calcium 9.1, Calcium Adj for Albumin 8.5, Total Bilirubin 0.4, AST 50 H, ALT 22, Alkaline Phosphatase 162, Troponin I Less than 0.017, B-Natriuretic Peptide 260 H, Total Protein 7.9, Albumin 4.3 02/17/19 18:05: pCO2 28.8 L, pO2 83.0, HCO3 15.0 L, Total CO2 15.9 L, Base Excess -9.4 L, ABG pH 7.34 L, ABG O2 Sat (Measured) 95.8 02/18/19 00:35: Sodium 125 L, Plasma Sodium 125 L, Potassium 4.0, Chloride 86 L, Carbon Dioxide 18.1 L, Anion Gap 24.9 H, BUN 23, Creatinine 0.94, Est GFR (Non- Af Amer) 65 D, BUN/Creatinine Ratio 24.5 H, Random Glucose 87 D, Calcium 8.8, Calcium Adj for Albumin 8.5, Total Bilirubin 0.6, AST 36, ALT 20, Alkaline Phosphatase 152, Total Protein 7.6, Albumin 4.0, Ethyl Alcohol Less than 3.0 02/18/19 00:35: Lactic Acid, Venous 1.7 02/18/19 10:44: WBC 2.3 L D, RBC 3.57 L, Hgb 11.5 L, Hct 33.0 L, MCV 92.4, MCH 32.2 H, MCHC 34.8, RDW 13.8, Plt Count 311, MPV 9.6, Immature Gran % (Auto) 0.00 L, Immature Gran # (Auto) 0.00, Neutrophils % 74.1, Lymphocytes % 21.1, Monocytes % 4.8, Eosinophils % 0.0, Basophils % 0.0, Nucleated RBC % 0.0, Neutrophils # 1.7, Lymphocytes # 0.48 L, Monocytes # 0.1, Eosinophils # 0.0, Absolute Basophils 0.0 02/18/19 10:44: Sodium 126 L, Plasma Sodium 127 L, Potassium 4.5, Chloride 88 L, Carbon Dioxide 22.7 L, Anion Gap 19.8 H, BUN 45 H D, Creatinine 1.58 H D, Est GFR (Non-Af Amer) 36 L D, BUN/Creatinine Ratio 28.5 H, Random Glucose 164 H D, Calcium 8.6, Calcium Adj for Albumin 8.4, Total Bilirubin 0.6, AST 31, ALT 19, Alkaline Phosphatase 132, Total Protein 7.0, Albumin 3.9 02/19/19 11:52: WBC 13.7 H D, RBC 3.45 L, Hgb 11.1 L, Hct 32.5 L, MCV 94.2, MCH 32.2 H, MCHC 34.2, RDW 14.9 H, Plt Count 293, MPV 10.0, Immature Gran % (Auto) 0.40, Immature Gran # (Auto) 0.06 H, Neutrophils % 91.1 H, Lymphocytes % 3.1 L, Monocytes % 5.3, Eosinophils % 0.0, Basophils % 0.1, Nucleated RBC % 0.0, Neutrophils # 12.5 H, Lymphocytes # 0.42 L, Monocytes # 0.7, Eosinophils # 0.0, Absolute Basophils 0.0 02/19/19 11:52: Sodium 136, Plasma Sodium 137, Potassium 4.0, Chloride 102, Carbon Dioxide 23.0 L, Anion Gap 15.0 H, BUN 40 H, Creatinine 1.06, Est GFR (Non-Af Amer) 56 L D, BUN/Creatinine Ratio 37.7 H, Random Glucose 182 H, Calcium 8.2, Calcium Adj for Albumin 8.2 L, Total Bilirubin 0.3, AST 27, ALT 18 L, Alkaline Phosphatase 112, Total Protein 6.6, Albumin 3.6 Discharge Location: Home Disposition: Against medical advice Condition: Fair Discharge Activity: Activity as tolerated Discharge Diet: General/regular food Referrals: Betty Marshall FNP [Primary Care Provider] - Complete Home Medications List: Complete Home Medication List: Aspirin 81 mg PO DAILY 03/31/17 Glycopyrrolate/Formoterol Fum [Bevespi Aerosphere Inhaler] 10.7 gm IH BID 03/31/17 Levothyroxine Sodium [Levoxyl] 25 mcg PO DAILY 03/31/17 Pravastatin Sodium 40 mg PO QAM 03/31/17 Albuterol Sulfate [Proventil Hfa] 2 puff IH Q4H PRN 03/31/18 Clonidine HCl [Catapres] 0.1 mg PO BID 03/31/18 Fluticasone Propionate [Flovent Hfa] 2 inh IH BID 03/31/18 Gabapentin 600 mg PO TID 03/31/18 Lurasidone HCl [Latuda] 40 mg PO QPM 03/31/18 Meloxicam 15 mg PO DAILY 03/31/18 Montelukast Sodium [Singulair] 10 mg PO QPM 03/31/18 Omeprazole 20 mg PO DAILY 03/31/18 amLODIPine BESYLATE [Norvasc] 10 mg PO DAILY 03/31/18 rOPINIRole HCL [Requip] 2 mg PO QPM 03/31/18 Albuterol Sulfate/Ipratropium [Duoneb 2.5-0.5MG/3ML Soln] 3 ml IH Q4H PRN #180 nebu 04/01/18 Sertraline HCl [Zoloft] 100 mg PO QAM 09/12/18 Fluticasone Furoate [Arnuity Ellipta] 50 mcg INHALATION DAILY 11/18/18 Loratadine [Claritin] 10 mg PO DAILY 11/18/18 Mirtazapine [Remeron] 30 mg PO QPM 11/18/18 Buspirone HCl 15 mg PO Q6H PRN #60 tab 11/19/18 Fluticasone Propionate [Flonase] 2 spray NS DAILY #1 inhaler 11/19/18
== END 2019-02-19 14:06 | disposition left against medical advice (07) | DRG 191 ==
LOC: ER 17:34 → MS 17:34 → OBSVTOIN 19:09 → INTOOBSV 19:09 → MS 19:50
PROVIDERS: ADMIT Family Medicine; ATTEND Family Medicine
DX: R53.1 Weakness; E03.9 Hypothyroidism, unspecified; J44.1 Chronic obstructive pulmonary disease with (acute) exacerbation; Z53.21 Procedure and treatment not carried out due to patient leaving prior to being seen by health care provider; K50.90 Crohn's disease, unspecified, without complications; I10 Essential (primary) hypertension; E87.1 Hypo-osmolality and hyponatremia; F17.210 Nicotine dependence, cigarettes, uncomplicated
CPT/HCPCS: 36415; 36600; 71020; 71046; 80053; 80320; 82803; 83519; 83605; 83880; 84484; 85025; 87081; 93005; 94640; 94664; 94760; 96361; 96365; 96366; 96375; 99285; G0378; G0481; J2405

== ENCOUNTER 2019-11-13 20:52 | Inpatient (IN) ==
--- NOTE | 2019-11-13 21:07 | ERNOTE ---
Dyspnea - General Presenting Symptoms: shortness of breath Time Seen by Provider: 11/13/19 20:59 Source: patient, EMS Exam Limitations: no limitations - Immun/Allergies/Home Medications Immunizations: IMMUNIZATION HX Immunizations Up to Date Yes History of Influenza Vaccine No Hx Pneumococcal Vaccination Yes Allergies/Adverse Reactions: Allergies quetiapine fumarate [From Seroquel] Allergy (Intermediate, Verified 11/13/19 21:00) Hives risperidone Allergy (Intermediate, Verified 11/13/19 21:00) Hives codeine [Codeine] Adverse Reaction (Mild, Verified 11/13/19 21:00) Vomiting Home Medications: HOME MEDICATIONS Aspirin 81 mg PO DAILY 03/31/17 [Last Taken Unknown] Glycopyrrolate/Formoterol Fum [Bevespi Aerosphere Inhaler] 10.7 gm IH BID 03/31/17 [Last Taken Unknown] Levothyroxine Sodium [Levoxyl] 25 mcg PO DAILY 03/31/17 [Last Taken Unknown] Pravastatin Sodium 40 mg PO QAM 03/31/17 [Last Taken Unknown] Albuterol Sulfate [Proventil Hfa] 2 puff IH Q4H PRN 03/31/18 [Last Taken Unknown] Clonidine HCl [Catapres] 0.1 mg PO BID 03/31/18 [Last Taken Unknown] Gabapentin 600 mg PO TID 03/31/18 [Last Taken Unknown] Meloxicam 15 mg PO DAILY 03/31/18 [Last Taken Unknown] Montelukast Sodium [Singulair] 10 mg PO QPM 03/31/18 [Last Taken Unknown] Omeprazole 20 mg PO DAILY 03/31/18 [Last Taken Unknown] amLODIPine BESYLATE [Norvasc] 10 mg PO DAILY 03/31/18 [Last Taken Unknown] rOPINIRole HCL [Requip] 2 mg PO QPM 03/31/18 [Last Taken Unknown] Albuterol Sulfate/Ipratropium [Duoneb 2.5-0.5MG/3ML Soln] 3 ml IH Q4H PRN #180 nebu 04/01/18 [Last Taken Unknown] Sertraline HCl [Zoloft] 100 mg PO QAM 09/12/18 [Last Taken Unknown] Loratadine [Claritin] 10 mg PO DAILY 11/18/18 [Last Taken Unknown] Mirtazapine [Remeron] 30 mg PO QPM 11/18/18 [Last Taken Unknown] Fluticasone Propionate [Flonase] 2 spray NS DAILY #1 inhaler 11/19/18 [Last Taken Unknown] Prochlorperazine [Compazine] 25 mg RC BID PRN #14 supp.rect 05/29/19 [Last Taken Unknown] Doxycycline Hyclate [Morgidox] 100 mg PO BID 10 Days #20 cap 11/11/19 [Last Take n Unknown] - History of Present Illness Narrative: Patient has chronic severe COPD and is on 2-1/2 L of oxygen consistently at home. Patient was here 3 days ago with similar complaints of shortness of breath. She was discharged on p.o. antibiotics and to follow-up with her primary care physician. She states she has an appointment with her physician in 3 days but continued to have trouble with shortness of breath tonight. 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 Absent: fever ENT: Absent: nose congestion, nasal drainage Respiratory: Present: See HPI, shortness of breath Cardiology: Absent: chest pain Gastrointestinal/Abdominal: Absent: nausea, vomiting Genitourinary: Absent: dysuria Skin: Absent: rash Neurological: Present: headache. Absent: numbness, tingling Endocrine: Absent: excessive sweating Medical History (Last Reviewed 11/13/19 @ 21:04 by Josh Harmon DO) COPD (chronic obstructive pulmonary disease) Crohn disease Hx of TIA (transient ischemic attack) and stroke Hypertension Hypothyroidism Migraine headache Supplemental oxygen dependent 3L hx of multiple fractures Surgical History: Surgical History (Last Reviewed 11/13/19 @ 21:04 by Josh Harmon DO) Hx of appendectomy Hx of kidney removal Hx of splenectomy Hx of tonsillectomy Poor historian Family History: Family History (Last Reviewed 11/13/19 @ 21:04 by Josh Harmon DO) Brother Liver cancer Sister Breast cancer Mother Throat cancer Social History: (Last Reviewed 11/13/19 @ 21:04 by Josh Harmon DO) Tobacco: Smoking Status: Current every day smoker Physical Exam - Physical Exam General Appearance: Present: wd/wn, alert, mild distress Head Exam: Present: normal inspection, no evidence of injury Neck: Present: normal inspection, nontender Respiratory: Present: accessory muscle use, expiration (prolonged), rhonchi - Expiratory throughout Cardiovascular/Chest: Present: regular rate, rhythm, no murmur Gastrointestinal/Abdominal: Present: normal bowel sounds, nontender Extremity Exam: Present: normal inspection, normal range of motion, no edema Neurological Exam: Present: alert, oriented, no motor/sensory deficits Skin Exam: Present: normal color, warm/dry Progress - Results and Orders Patient's Lab Results:: I have reviewed the patient's lab results. Results and Orders: Laboratory Tests 11/13/19 11/13/19 21:22 21:22 WBC 5.3 D Hgb 12.2 L Hct 38.1 Plt Count 333 Sodium 133 Potassium 3.7 Chloride 94 L Carbon Dioxide 33.4 H BUN 28 H D Creatinine 1.03 Random Glucose 135 H D Calcium 9.4 Total Bilirubin 0.2 AST 38 ALT 12 L Alkaline Phosphatase 109 Troponin I Less than 0.017 B-Natriuretic Peptide 1974 H - Vital Signs Patient's Vital Signs:: I have reviewed the patient's vital signs. - X-Ray X-Ray #1 X-Ray: chest Interpretation: Interp. by me X-ray Comments: Severe COPD. Left lung mildly edematous without pleural effusion. - Progress/Reassessment Progress Note-Subjective: 11/13/19 23:[address] Jimenez he agrees with admission for acute exacerbation of COPD. We are having any trouble getting an IV on the patient multiple nurses have tried we will try calling anesthesia to see if they will come in and make an attempt. 11/14/19 00:13 Patient states she did take her nighttime medications before she came to the ER so she does not need any nighttime medications. Departure Clinical Impression: COPD with acute lower respiratory infection - Departure Disposition: Still a patient Condition: Stable
[2019-11-13 21:36] LABS: Hematocrit 38.1 % (37.0-47.0); Hemoglobin 12.2 gm/dL (12.5-16.0); Mean Cell Volume 100.8 fl (78-100); Mean Corpuscular Hemoglobin 32.3 pg (27-31); Platelet Count 333 K/mm3 (150-450); Red Blood Count 3.78 M/mm3 (4.2-5.4); White Blood Count 5.3 K/mm3 (4.0-10.5)
[2019-11-13 21:42] LABS: Total Cells Counted 100
[2019-11-13 21:46] LABS: Eosinophil 1 % (0-3); Howell-Jolly Bodies 2+; Immature Granulocyte 4 (0-1); Lymphocyte 33 % (20-51); Macrocytosis 1+; Monocyte 6 % (0-9); Neutrophil 56 % (42-75); Platelet Estimate Normal (NORMAL)
[2019-11-13] MEDS ORDERED: METHYLPREDNISOLONE SOD SUCC/PF 125 MG/2 ML VIAL IV ONE (21:50)
[2019-11-13 21:51] LABS: ALT 12 U/L (19-67); AST 38 U/L (0-48); Albumin * 3.8 gm/dl (3.4-5.0); Alkaline Phosphatase * 109 U/L (50-170); Anion Gap 9.3 mmol/L (6.8-13.8); BNP * 1974 pg/mL (5-205); BUN/Creatinine Ratio 27.2 (9.0-21.6); Bilirubin, Total 0.2 mg/dL (0.0-1.1); Blood Urea Nitrogen 28 mg/dL (3-23); Ca. Corrected For Albumin 9.2 mg/dL (8.4-10.2); Calcium * 9.4 mg/dL (7.9-10.9); Carbon Dioxide 33.4 mmol/L (24-32.6); Chloride 94 mmol/L (97-106); Glucose * 135 mg/dL (70-110); Potassium 3.7 mmol/L (3.4-4.6); Sodium 133 mmol/L (132-142); Total Protein 7.2 gm/dL (6.2-8.2); Troponin I Less than 0.017 ng/mL (0.00-0.10)
[2019-11-14] MEDS: ALBUTEROL SULFATE/IPRATROPIUM 3 ML NEBU IH SCH ×4 (00:50→17:59)
[2019-11-14] MEDS ORDERED: ALBUTEROL SULFATE/IPRATROPIUM 3 ML NEBU IH SCH (01:00)
[2019-11-14] MEDS ORDERED: SUMAtriptan SUCCINATE 50 MG TABLET PO ONE (02:04)
[2019-11-14] MEDS: IBUPROFEN 800 MG TABLET PO PRN ×2 (02:40→18:36)
[2019-11-14] MEDS ORDERED: PROCHLORPERAZINE 25 MG SUPP.RECT RC PRN (07:46)
[2019-11-14] MEDS ORDERED: ALBUTEROL SULFATE 2.5 MG/0.5 ML VIAL.NEB IH PRN (07:46)
[2019-11-14] MEDS ORDERED: SUMAtriptan SUCCINATE 50 MG TABLET PO PRN (07:58)
--- NOTE | 2019-11-14 08:27 | HP ---
Chief Complaint - Chief Complaint Date of Service: 11/14/19 Time of Service: 08:03 Chief Complaint: dyspnea, acute exacerbation of COPD, Hypertension, Migraine cephalgia, Fibromyalgia, Major depressive disorder, Generalized anxiety disorder History of Present Illness: Josephine Hare is a 59-year-old female who presented to ER with marked shortness of breath and dyspnea at rest. 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 She also has a history of hypertension, major depressive disorder, generalized anxiety disorder, fibromyalgia, and oxygen dependency. She states she has been on a lot of different medications some of which were helpful and some were not. She has taken lorazepam in the past for anxiety than it worked well for her. She was taken off of that and put on hydroxyzine which did not help but it did make her asthma worse. She states that Topamax at 25 mg twice daily was not helpful in prophylaxing her migraine headaches. She has not been on a higher dose however. This morning she is hypertensive with blood pressure 161/110. She is quite anxious with pressured speech. She had a migraine headache through the night that was resolved with sumatriptan. Medical History (Last Reviewed 11/14/19 @ 01:15 by Kay Gunter RN) COPD (chronic obstructive pulmonary disease) Crohn disease Hx of TIA (transient ischemic attack) and stroke Hypertension Hypothyroidism Migraine headache Supplemental oxygen dependent 3L hx of multiple fractures Surgical History: Surgical History (Last Reviewed 11/14/19 @ 01:15 by Kay Gunter RN) Hx of appendectomy Hx of kidney removal Hx of splenectomy Hx of tonsillectomy Poor historian Family History: Family History (Last Reviewed 11/14/19 @ 01:15 by Kay Gunter RN) Brother Liver cancer Sister Breast cancer Mother Throat cancer Social History: (Last Reviewed 11/13/19 @ 21:04 by Josh Harmon DO) Tobacco: Smoking Status: Current every day smoker Review Of Systems (GEN) - Review of Systems Generalized/Overall Review: Present: Malaise EENTM: Present: No Symptoms Reported Respiratory: Present: Cough, Shortness of Breath, Wheezing Cardiac: Present: Chest Pain Abdominal: Present: No Symptoms Reported Genitourinary: Present: No Symptoms Reported Musculoskeletal: Present: Muscle Pain Neurological: Present: Headache, Anxiety, Depressed, Emotional Problems Skin: Present: No Symptoms Reported Endocrine: Present: No Symptoms Reported Misc: All systems neg except as marked Immunizations: IMMUNIZATION HX Immunizations Up to Date Yes History of Influenza Vaccine No Hx Pneumococcal Vaccination No Allergies/Adverse Reactions: Allergies Allergy/AdvReac Type Severity Reaction Status Date / Time quetiapine fumarate Allergy Intermediate Hives Verified 11/13/19 21:00 [From Seroquel] risperidone Allergy Intermediate Hives Verified 11/13/19 21:00 codeine [Codeine] AdvReac Mild Vomiting Verified 11/13/19 21:00 Home Medications: HOME MEDICATIONS Aspirin 81 mg PO DAILY 03/31/17 [Last Taken Unknown] Glycopyrrolate/Formoterol Fum [Bevespi Aerosphere Inhaler] 10.7 gm IH BID 03/31/17 [Last Taken Unknown] Levothyroxine Sodium [Levoxyl] 25 mcg PO DAILY 03/31/17 [Last Taken Unknown] Pravastatin Sodium 40 mg PO QAM 03/31/17 [Last Taken Unknown] Albuterol Sulfate [Proventil Hfa] 2 puff IH Q4H PRN 03/31/18 [Last Taken Unknown] Clonidine HCl [Catapres] 0.1 mg PO BID 03/31/18 [Last Taken Unknown] Gabapentin 600 mg PO TID 03/31/18 [Last Taken Unknown] Meloxicam 15 mg PO DAILY 03/31/18 [Last Taken Unknown] Montelukast Sodium [Singulair] 10 mg PO QPM 03/31/18 [Last Taken Unknown] Omeprazole 20 mg PO DAILY 03/31/18 [Last Taken Unknown] amLODIPine BESYLATE [Norvasc] 10 mg PO DAILY 03/31/18 [Last Taken Unknown] rOPINIRole HCL [Requip] 2 mg PO QPM 03/31/18 [Last Taken Unknown] Albuterol Sulfate/Ipratropium [Duoneb 2.5-0.5MG/3ML Soln] 3 ml IH Q4H PRN #180 nebu 04/01/18 [Last Taken Unknown] Sertraline HCl [Zoloft] 100 mg PO QAM 09/12/18 [Last Taken Unknown] Loratadine [Claritin] 10 mg PO DAILY 11/18/18 [Last Taken Unknown] Mirtazapine [Remeron] 30 mg PO QPM 11/18/18 [Last Taken Unknown] Fluticasone Propionate [Flonase] 2 spray NS DAILY #1 inhaler 11/19/18 [Last Taken Unknown] Prochlorperazine [Compazine] 25 mg RC BID PRN #14 supp.rect 05/29/19 [Last Taken Unknown] Doxycycline Hyclate [Morgidox] 100 mg PO BID 10 Days #20 cap 11/11/19 [Last Taken Unknown] Exam - Exam Vital Signs: Vital Signs - Last Taken Temp 36.7 C 11/14/19 06:42 Pulse 108 H 11/14/19 06:42 Resp 24 H 11/14/19 06:42 BP 174/124 H 11/14/19 06:42 Pulse Ox 93 11/14/19 06:42 Constitutional: Present: Alert, Oriented x3, Cooperative, Well developed, Moderate distress, Thin and frail, Looks Older than stated age ENT Exam: Present: normal ENT inspection, hearing grossly normal, pharynx normal, TMs normal Eye Exam: bilateral eye: normal inspection, PERRL, EOMI Neck: Present: non-tender, full range of motion, supple, normal inspection Back Exam: Present: normal inspection, no CVA tenderness, no vertebral tenderness Respiratory: Present: accessory muscle use, rhonchi, stridor, wheezing, expiration (prolonged) Cardiovascular/Chest: Present: normal peripheral pulses, regular rate, rhythm, no edema, no gallop, no JVD, no murmur, no rub, chest tender Peripheral Pulses: carotid (R): 2+, carotid (L): 2+, radial (R): 2+, radial (L): 2+ Abdomen: Present: Normal bowel sounds, soft, nontender, nondistended, no rebound tenderness, no hepatospenomegaly, no masses /Rectal: Present: Exam deferred Extremity: Present: normal range of motion Skin Exam: Present: normal color, warm/dry, no cyanosis Lymphatic: Present: no adenopathy Neurologic: Present: 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 as tested Appearance: Present: appropriate appearance, appropriate insight, neat, no memory impairment Eye contact: Present: cooperative, good eye contact, normal speech Thoughts: Present: normal thought pattern, no apparent hallucination, flight of ideas Diagnostic Studies: Abnormal Lab Results 11/13/19 11/13/19 Range/Units 21:22 21:22 RBC 3.78 L (4.2-5.4) M/mm3 Hgb 12.2 L (12.5-16.0) gm/dL MCV 100.8 H (78-100) fl MCH 32.3 H (27-31) pg RDW 15.0 H (11.5-14.0) % Immature Granulocytes 4 H (0-1) Chloride 94 L (97-106) mmol/L Carbon Dioxide 33.4 H (24-32.6) mmol/L BUN 28 H D (3-23) mg/dL Est GFR (Non-Af Amer) 58 L D (60-130) mL/min BUN/Creatinine Ratio 27.2 H (9.0-21.6) Random Glucose 135 H D (70-110) mg/dL ALT 12 L (19-67) U/L B-Natriuretic Peptide 1974 H (5-205) pg/mL Laboratory Results WBC 5.3 K/mm3 (4.0-10.5) D 11/13/19 21:22 RBC 3.78 M/mm3 (4.2-5.4) L 11/13/19 21:22 Hgb 12.2 gm/dL (12.5-16.0) L 11/13/19 21:22 Hct 38.1 % (37.0-47.0) 11/13/19 21:22 MCV 100.8 fl (78-100) H 11/13/19 21:22 MCH 32.3 pg (27-31) H 11/13/19 21:22 MCHC 32.0 g/dl (32-36) 11/13/19 21:22 RDW 15.0 % (11.5-14.0) H 11/13/19 21:22 Plt Count 333 K/mm3 (150-450) 11/13/19 21:22 MPV 10.0 fl (8-12.5) 11/13/19 21:22 Neutrophils % (Manual) 56 % (42-75) 11/13/19 21:22 Lymphocytes % (Manual) 33 % (20-51) 11/13/19 21: Monocytes % (Manual) 6 % (0-9) 11/13/19 21: Eosinophils % (Manual) 1 % (0-3) 11/13/19 21:22 Immature Granulocytes 4 (0-1) H 11/13/19 21:22 Neutrophils # (Manual) 3.0 K/mm3 (1.3-6.0) 11/13/19 21:22 Lymphocytes # (Manual) 1.7 k/mm3 (1.5-3.5) 11/13/19 21:22 Monocytes # (Manual) 0.3 k/mm3 (0.0-1.0) 11/13/19 21:22 Eosinophils # (Manual) 0.1 k/mm3 (0.0-0.7) 11/13/19 21:22 Platelet Estimate Normal (NORMAL) 11/13/19 21:22 Macrocytosis 1+ 11/13/19 21:22 Hand-[place] Bodies 2+ 11/13/19 21:22 Sodium 133 mmol/L (132-142) 11/13/19 21:22 Plasma Sodium 134 mmol/L (130-142) 11/13/19 21:22 Potassium 3.7 mmol/L (3.4-4.6) 11/13/19 21:22 Chloride 94 mmol/L (97-106) L 11/13/19 21:22 Carbon Dioxide 33.4 mmol/L (24-32.6) H 11/13/19 21:22 Anion Gap 9.3 mmol/L (6.8-13.8) 11/13/19 21:22 BUN 28 mg/dL (3-23) H D 11/13/19 21:22 Creatinine 1.03 mg/dL (0.4-1.4) 11/13/19 21:22 Est GFR (Non-Af Amer) 58 mL/min (60-130) L D 11/13/19 21:22 BUN/Creatinine Ratio 27.2 (9.0-21.6) H 11/13/19 21:22 Random Glucose 135 mg/dL (70-110) H D 11/13/19 21:22 Calcium 9.4 mg/dL (7.9-10.9) 11/13/19 21:22 Calcium Adj for Albumin 9.2 mg/dL (8.4-10.2) 11/13/19 21:22 Total Bilirubin 0.2 mg/dL (0.0-1.1) 11/13/19 21:22 AST 38 U/L (0-48) 11/13/19 21:22 ALT 12 U/L (19-67) L 11/13/19 21:22 Alkaline Phosphatase 109 U/L (50-170) 11/13/19 21:22 Troponin I Less than 0.017 ng/mL (0.00-0.10) 11/13/19 21:22 B-Natriuretic Peptide 1974 pg/mL (5-205) H 11/13/19 21:22 Total Protein 7.2 gm/dL (6.2-8.2) 11/13/19 21:22 Albumin 3.8 gm/dl (3.4-5.0) 11/13/19 21:22 Assessment/Plan - Narrative Narrative: 1. Continue DuoNeb treatments every 6 hours 2. Start budesonide and formoterol neb treatments twice daily 3. Meds as reconciled 4. Twelve-lead EKG 5. Lab to include TSH, free T4, and lipid panel on admission lab and a CBC and CMP on tomorrow morning's lab. 6. Add lorazepam 1 mg every 8 hours for anxiety 7. Increase Topamax to 50 mg twice daily 8. No NSAIDs or drying antihistamines 9. Increase amlodipine to 10 mg twice daily 10. Increase clonazepam 0.1 mg to 1 p.o. 3 times daily - Assessment/Plan (1) Acute respiratory failure Problem: Acute Qualifiers: Respiratory failure complication: hypoxia Qualified Code(s): J96.01 - Acute respiratory failure with hypoxia (2) COPD with exacerbation Problem: Acute (3) Generalized anxiety disorder Problem: Chronic (4) Fibromyalgia Problem: Chronic (5) Migraine Problem: Chronic Qualifiers: Migraine type: with aura Status migrainosus presence: without status migrainosus Intractability: not intractable Qualified Code(s): G43.109 - Migraine with aura, not intractable, without status migrainosus (6) Tobacco abuse Problem: Chronic (7) Depression Problem: Chronic Qualifiers: Depression Type: major depressive disorder Major depression recurrence: recurrent Active/Remission status: currently active Major depression episode severity: moderate Qualified Code(s): F33.1 - Major depressive disorder, recurrent, moderate (8) Hypothyroidism Problem: Chronic Qualifiers: Hypothyroidism type: acquired (9) Shortness of breath Problem: Acute
[2019-11-14] MEDS: BUDESONIDE 0.5 MG/2 ML VIAL.NEB IH SCH ×2 (08:30→17:59)
[2019-11-14] MEDS: ENOXAPARIN SODIUM 40 MG/0.4 ML SYRG SC SCH (08:34)
[2019-11-14] MEDS: CLONIDINE HCL 0.1 MG TABLET PO SCH ×2 (08:35→15:21)
[2019-11-14] MEDS: LORATADINE 10 MG TABLET PO SCH (08:35)
[2019-11-14] MEDS: ASPIRIN 81 MG TAB.CHEW PO SCH (08:35)
[2019-11-14] MEDS: amLODIPine BESYLATE 10 MG TABLET PO SCH ×2 (08:35→20:23)
[2019-11-14] MEDS: LEVOTHYROXINE SODIUM 25 MCG TABLET PO SCH (08:36)
[2019-11-14] MEDS: SERTRALINE HCL 100 MG TABLET PO SCH (08:36)
[2019-11-14] MEDS: PANTOPRAZOLE SODIUM 20 MG TABLET.DR PO SCH (08:36)
[2019-11-14] MEDS: TOPIRAMATE 50 MG TABLET PO SCH ×2 (08:36→20:24)
[2019-11-14 08:40] LABS: Chol/HDL Risk Ratio 4.4 mg/dL (3.3-4.4); T4 Free * 0.85 ng/dL (0.76-1.46); TSH * 1.187 uIU/mL (0.358-3.74)
[2019-11-14] MEDS: LORazepam 1 MG TABLET PO SCH ×2 (08:42→15:20)
[2019-11-14] MEDS: METHYLPREDNISOLONE SOD SUCC/PF 125 MG/2 ML VIAL IV SCH ×3 (09:04→20:25)
[2019-11-14] MEDS: FORMOTEROL FUMARATE 20 MCG/2 ML VIAL IH SCH ×2 (09:29→17:59)
[2019-11-14] MEDS ORDERED: FLU VACC QS2019-20(6MOS UP)/PF 60 MCG/0.5 ML SYRINGE IM ONE (10:00)
[2019-11-14] MEDS: MONTELUKAST SODIUM 10 MG TABLET PO SCH (17:03)
[2019-11-14] MEDS: MIRTAZAPINE 15 MG TABLET PO SCH (17:03)
[2019-11-14] MEDS: rOPINIRole HCL 1 MG TABLET PO SCH (17:06)
[2019-11-14] MEDS: SIMVASTATIN 20 MG TABLET PO SCH (20:24)
[2019-11-15] MEDS: ALBUTEROL SULFATE/IPRATROPIUM 3 ML NEBU IH SCH ×4 (00:11→19:14)
[2019-11-15] MEDS: METHYLPREDNISOLONE SOD SUCC/PF 125 MG/2 ML VIAL IV SCH (02:48)
[2019-11-15] MEDS: FORMOTEROL FUMARATE 20 MCG/2 ML VIAL IH SCH ×2 (06:01→19:13)
[2019-11-15] MEDS: BUDESONIDE 0.5 MG/2 ML VIAL.NEB IH SCH ×2 (06:02→19:13)
[2019-11-15] MEDS: IBUPROFEN 800 MG TABLET PO PRN ×2 (06:21→16:53)
[2019-11-15 06:44] LABS: Hematocrit 35.8 % (37.0-47.0); Hemoglobin 11.8 gm/dL (12.5-16.0); Mean Platelet Volume 10.2 fl (8-12.5); Platelet Count 332 K/mm3 (150-450); Red Blood Count 3.69 M/mm3 (4.2-5.4); Red Cell Distribution Width 14.7 % (11.5-14.0); White Blood Count 4.9 K/mm3 (4.0-10.5)
[2019-11-15 06:47] LABS: Albumin * 3.2 gm/dl (3.4-5.0); Anion Gap 6.3 mmol/L (6.8-13.8); BUN/Creatinine Ratio 21.6 (9.0-21.6); Bilirubin, Total 0.1 mg/dL (0.0-1.1); Ca. Corrected For Albumin 9.6 mg/dL (8.4-10.2); Calcium * 9.3 mg/dL (7.9-10.9); Carbon Dioxide 35.8 mmol/L (24-32.6); Potassium 4.1 mmol/L (3.4-4.6); Total Protein 6.7 gm/dL (6.2-8.2)
[2019-11-15 06:51] LABS: Total Cells Counted 100
[2019-11-15] MEDS: LEVOTHYROXINE SODIUM 25 MCG TABLET PO SCH (07:08)
[2019-11-15 07:11] LABS: Lymphocyte 31 % (20-51); Monocyte 3 % (0-9); Neutrophil 66 % (42-75); Neutrophil # 3.2 K/mm3 (1.3-6.0)
[2019-11-15 07:15] LABS: Platelet Estimate Normal (NORMAL); Target Cells 1+
[2019-11-15] MEDS: amLODIPine BESYLATE 10 MG TABLET PO SCH ×2 (08:26→20:33)
[2019-11-15] MEDS: LORATADINE 10 MG TABLET PO SCH (08:26)
[2019-11-15] MEDS: PANTOPRAZOLE SODIUM 20 MG TABLET.DR PO SCH (08:26)
[2019-11-15] MEDS: SERTRALINE HCL 100 MG TABLET PO SCH (08:27)
[2019-11-15] MEDS: TOPIRAMATE 50 MG TABLET PO SCH ×2 (08:27→20:32)
[2019-11-15] MEDS: ASPIRIN 81 MG TAB.CHEW PO SCH (08:27)
[2019-11-15] MEDS: CLONIDINE HCL 0.1 MG TABLET PO SCH ×4 (08:27→23:54)
[2019-11-15] MEDS: ENOXAPARIN SODIUM 40 MG/0.4 ML SYRG SC SCH (08:28)
[2019-11-15] MEDS: LORazepam 1 MG TABLET PO SCH ×4 (08:30→23:54)
[2019-11-15] MEDS: LOSARTAN POTASSIUM 50 MG TABLET PO SCH (09:45)
--- NOTE | 2019-11-15 12:50 | PN ---
Subjective - Date and Time Seen Date: 11/15/19 Time: 12:35 Subjective Narrative: Josephine Milner has made good progress. She is breathing more relaxed. She is coughing and producing some mucus now. She feels her breathing is less labored. She is resting better. The lorazepam has helped her anxiety quite a lot. She needs to be retested for home oxygen and will do that before she is discharged. She believes the formoterol and budesonide have been very helpful for her breathing. I discussed her smoking history with her and she is smoked most of her adolescent and adult life. She has recently switched to a product called Free & Clear and also had changed to vaping but could not afford that so she is back to using V is again now. She has had all cigarettes and tobacco removed from her apartment so that when she goes home it will not be available to her. Antici rebolled[facility] discharge tomorrow morning. Today's lab shows white count is mildly elevated but is probably from steroid effect. Hemoglobin hematocrit are okay. Platelets are normal. Chemistries show the CO2 normal electrolytes. Rest of the chemistries are uneventful. Auscultation of the chest shows improved breath sounds and wheezing is markedly decreased from yesterday. She is still using some secondary muscles of respiration. Objective - Review of Systems Generalized/Overall Review: Reports: Weakness, Fatigue EENTM: Reports: No Symptoms Reported Respiratory: Reports: Cough, Shortness of Breath Cardiac: Reports: No Symptoms Reported Abdominal: Reports: No Symptoms Reported Genitourinary Symptoms: Reports: No Symptoms Reported Musculoskeletal Complaints: Reports: No Symptoms Reported Neurological: Reports: Anxiety - Improved, Weakness Skin: Reports: No Symptoms Reported Endocrine: Reports: No Symptoms Reported Misc: All systems neg except as marked - Vitals Vitals: Last Vital Signs Temp 36.8 C 11/15/19 09:28 Pulse 82 11/15/19 09:45 Resp 18 11/15/19 09:28 BP 136/90 H 11/15/19 09:45 Pulse Ox 96 11/15/19 09:28 - Abnormal Lab Findings Abnormal Lab Findings: Abnormal Lab Results 11/15/19 11/15/19 Range/Units 06:30 06:30 RBC 3.69 L (4.2-5.4) M/mm3 Hgb 11.8 L (12.5-16.0) gm/dL Hct 35.8 L (37.0-47.0) % MCH 32.0 H (27-31) pg RDW 14.7 H (11.5-14.0) % Carbon Dioxide 35.8 H (24-32.6) mmol/L Anion Gap 6.3 L (6.8-13.8) mmol/L Random Glucose 142 H (70-110) mg/dL ALT 12 L (19-67) U/L Albumin 3.2 L (3.4-5.0) gm/dl - EKG/Xray Findings EKG: NSR EKG read: Interp. by me XRAY: chest Interpretation: Reviewed by me - Exam Constitutional: Present: Alert, Oriented x3, Cooperative, Well developed, Thin and frail, Looks Older than stated age ENT Exam: Present: normal ENT inspection, hearing grossly normal, pharynx normal, TMs normal Neck: Present: non-tender, full range of motion, supple, normal inspection, trachea midline Breasts: Present: Exam deferred Respiratory: Present: chest non-tender, accessory muscle use, wheezing, expiration (prolonged). Absent: crackles, rales, rhonchi, stridor Cardiovascular/Chest: Present: normal peripheral pulses, regular rate, rhythm, no chest tenderness, no edema, no gallop, no JVD, no murmur, no rub Abdomen: Present: Normal bowel sounds, soft, nontender, nondistended, no rebound tenderness, no hepatospenomegaly, no masses /Rectal: Present: Exam deferred Extremity: Present: normal range of motion, non-tender, normal inspection, no pedal edema, no calf tenderness, normal capillary refill Skin Exam: Present: normal color, warm/dry, no cyanosis Lymphatic: Present: no adenopathy Neurologic: Present: psychiatric rn II-XII nml as tested, no motor/sensory deficits, alert Appearance: Present: appropriate appearance, appropriate insight, neat, no memory impairment Eye contact: Present: cooperative, good eye contact, normal speech Thoughts: Present: normal thought pattern, no apparent hallucination Assessment/Plan - Problems/Diagnosis (1) Acute respiratory failure Problem: Acute Qualifiers: Respiratory failure complication: hypoxia Qualified Code(s): J96.01 - Acute respiratory failure with hypoxia (2) COPD with exacerbation Problem: Acute (3) Generalized anxiety disorder Problem: Chronic (4) Fibromyalgia Problem: Chronic (5) Migraine Problem: Chronic Qualifiers: Migraine type: with aura Status migrainosus presence: without status migrainosus Intractability: not intractable Qualified Code(s): G43.109 - Migraine with aura, not intractable, without status migrainosus (6) Tobacco abuse Problem: Chronic (7) Depression Problem: Chronic Qualifiers: Depression Type: major depressive disorder Major depression recurrence: recurrent Active/Remission status: currently active Major depression episode severity: moderate Qualified Code(s): F33.1 - Major depressive disorder, recurrent, moderate (8) Hypothyroidism Problem: Chronic Qualifiers: Hypothyroidism type: acquired (9) Shortness of breath Problem: Acute
[2019-11-15] MEDS: MIRTAZAPINE 15 MG TABLET PO SCH (16:54)
[2019-11-15] MEDS: rOPINIRole HCL 1 MG TABLET PO SCH (16:54)
[2019-11-15] MEDS: MONTELUKAST SODIUM 10 MG TABLET PO SCH (16:55)
[2019-11-15] MEDS: SIMVASTATIN 20 MG TABLET PO SCH (20:33)
[2019-11-16] MEDS: ALBUTEROL SULFATE/IPRATROPIUM 3 ML NEBU IH SCH ×2 (00:52→06:03)
[2019-11-16] MEDS: BUDESONIDE 0.5 MG/2 ML VIAL.NEB IH SCH (06:02)
[2019-11-16] MEDS: FORMOTEROL FUMARATE 20 MCG/2 ML VIAL IH SCH (06:02)
[2019-11-16] MEDS: LEVOTHYROXINE SODIUM 25 MCG TABLET PO SCH (06:57)
[2019-11-16] MEDS: CLONIDINE HCL 0.1 MG TABLET PO SCH (08:49)
[2019-11-16] MEDS: LORATADINE 10 MG TABLET PO SCH (08:50)
[2019-11-16] MEDS: LOSARTAN POTASSIUM 50 MG TABLET PO SCH (08:50)
[2019-11-16] MEDS: ASPIRIN 81 MG TAB.CHEW PO SCH (08:50)
[2019-11-16] MEDS: amLODIPine BESYLATE 10 MG TABLET PO SCH (08:52)
[2019-11-16] MEDS: ENOXAPARIN SODIUM 40 MG/0.4 ML SYRG SC SCH (08:52)
[2019-11-16] MEDS: PANTOPRAZOLE SODIUM 20 MG TABLET.DR PO SCH (08:53)
[2019-11-16] MEDS: SERTRALINE HCL 100 MG TABLET PO SCH (08:53)
[2019-11-16] MEDS: TOPIRAMATE 50 MG TABLET PO SCH (08:53)
--- NOTE | 2019-11-16 08:54 | DS ---
(1) COPD with exacerbation Problem: Acute (2) Acute respiratory failure Problem: Suspected Qualifiers: Respiratory failure complication: hypoxia Qualified Code(s): J96.01 - Acute respiratory failure with hypoxia (3) Generalized anxiety disorder Problem: Chronic (4) Fibromyalgia Problem: Chronic (5) Migraine Problem: Chronic Qualifiers: Migraine type: with aura Status migrainosus presence: without status migrainosus Intractability: not intractable Qualified Code(s): G43.109 - Migraine with aura, not intractable, without status migrainosus (6) Tobacco abuse Problem: Chronic (7) Depression Problem: Chronic Qualifiers: Depression Type: major depressive disorder Major depression recurrence: recurrent Active/Remission status: currently active Major depression episode severity: moderate Qualified Code(s): F33.1 - Major depressive disorder, recurrent, moderate (8) Hypothyroidism Problem: Chronic Qualifiers: Hypothyroidism type: acquired (9) Shortness of breath Problem: Acute Date of Discharge:: 11/16/19 Hospital Course: Josephine Hare is a 59-year-old female patient who presented to ER with marked shortness of breath which she could not correct at home. She has a longstanding history of COPD and tobacco abuse. In the emergency room she received treatment with albuterol and ipratropium bromide as well as a liter of IV fluid and IV steroids. She did not improve initially and was subsequently admitted with presumptive acute respiratory failure. However apparently she does not meet the percentage of decline requirement for that diagnosis and so the diagnosis is acute on chronic obstructive lung disease with acute exacerbation. Etiology is uncertain. She was started on IV Rocephin in the emergency room and continued daily. An infectious etiology was not determined. However, she has improved on antibiotics and so I will finish a course of cefdinir 300 mg twice daily for another 7 days. The next day I started her on budesonide and formoterol and that combination seems to have helped her a lot. Auscultation of her chest yesterday x2 showed marked improvement in air movement and marked decrease in her wheezing. This morning she is still moving good air but she has more wheezing. However she is fairly comfortable and feels that she can manage this at home if she has the new meds. I have spoken to her at length about her smoking and vaping and she is committed to quitting. She is already had all sources of tobacco removed from her home while she is in the hospital. She does not have a local physician and so she will follow with me in the office. She did receive 4 more doses of Solu-Medrol yesterday and I believe that has helped considerably as well. She may be steroid-dependent now but I will determine that over the next couple of weeks. Procedures Performed: none Results and Findings: Pending Mircobiology Results 11/13/19 22:18 Blood Blood Culture - Preliminary NO GROWTH AFTER 48 HOURS 11/13/19 21:22 Blood Blood Culture - Preliminary NO GROWTH AFTER 48 HOURS Lab Pending Results 11/13/19 21:22: WBC 5.3 D, RBC 3.78 L, Hgb 12.2 L, Hct 38.1, MCV 100.8 H, MCH 32.3 H, MCHC 32.0, RDW 15.0 H, Plt Count 333, MPV 10.0, Neutrophils % (Manual) 56, Lymphocytes % (Manual) 33, Monocytes % (Manual) 6, Eosinophils % (Manual) 1, Immature Granulocytes 4 H, Neutrophils # (Manual) 3.0, Lymphocytes # (Manual) 1.7, Monocytes # (Manual) 0.3, Eosinophils # (Manual) 0.1, Platelet Estimate Normal, Macrocytosis 1+, Hand-[place] Bodies 2+ 11/13/19 21:22: Sodium 133, Plasma Sodium 134, Potassium 3.7, Chloride 94 L, Carbon Dioxide 33.4 H, Anion Gap 9.3, BUN 28 H D, Creatinine 1.03, Est GFR (Non- Af Amer) 58 L D, BUN/Creatinine Ratio 27.2 H, Random Glucose 135 H D, Calcium 9.4, Calcium Adj for Albumin 9.2, Total Bilirubin 0.2, AST 38, ALT 12 L, Alkaline Phosphatase 109, Troponin I Less than 0.017, B-Natriuretic Peptide 1974 H, Total Protein 7.2, Albumin 3.8 11/14/19 08:10: Triglycerides 87, Cholesterol 190, LDL Cholesterol 130, VLDL Cholesterol 17, HDL Cholesterol 43, Cholesterol/HDL Ratio 4.4, TSH 1.187, Free T4 0.85 11/15/19 06:30: WBC 4.9, RBC 3.69 L, Hgb 11.8 L, Hct 35.8 L, MCV 97.0, MCH 32.0 H, MCHC 33.0, RDW 14.7 H, Plt Count 332, MPV 10.2, Neutrophils % (Manual) 66, Lymphocytes % (Manual) 31, Monocytes % (Manual) 3, Neutrophils # (Manual) 3.2, Lymphocytes # (Manual) 1.5, Monocytes # (Manual) 0.1, Platelet Estimate Normal, Target Cells 1+ 11/15/19 06:30: Sodium 137, Plasma Sodium 138, Potassium 4.1, Chloride 99, Carbon Dioxide 35.8 H, Anion Gap 6.3 L, BUN 16, Creatinine 0.74, Est GFR (Non-Af Amer) 85 D, BUN/Creatinine Ratio 21.6, Random Glucose 142 H, Calcium 9.3, Calcium Adj for Albumin 9.6, Total Bilirubin 0.1, AST 20, ALT 12 L, Alkaline Phosphatase 94, Total Protein 6.7, Albumin 3.2 L Discharge Location: Home Disposition: Home self-care Condition: Stable Face to Face Encounter completed per [facility] Guidelines: No Discharge Activity: Activity as tolerated Discharge Diet: General/regular food Referrals: Betty Marshall FNP [Primary Care Provider] - Additional Patient Instructions (free text): 1. Absolutely no smoking or vaping. 2. Avoid smoke and of noxious odors 3. See me in the office in 2 weeks. Complete Home Medications List: Complete Home Medication List: Aspirin 81 mg PO DAILY 03/31/17 Levothyroxine Sodium [Levoxyl] 25 mcg PO DAILY 03/31/17 Pravastatin Sodium 40 mg PO QAM 03/31/17 Albuterol Sulfate [Proventil Hfa] 2 puff IH Q4H PRN 03/31/18 Montelukast Sodium [Singulair] 10 mg PO QPM 03/31/18 Omeprazole 20 mg PO DAILY 03/31/18 amLODIPine BESYLATE [Norvasc] 10 mg PO DAILY 03/31/18 rOPINIRole HCL [Requip] 2 mg PO QPM 03/31/18 Albuterol Sulfate/Ipratropium [Duoneb 2.5-0.5MG/3ML Soln] 3 ml IH Q4H PRN #180 nebu 04/01/18 Sertraline HCl [Zoloft] 100 mg PO QAM 09/12/18 Loratadine [Claritin] 10 mg PO DAILY 11/18/18 Mirtazapine [Remeron] 30 mg PO QPM 11/18/18 Fluticasone Propionate [Flonase] 2 spray NS DAILY #1 inhaler 11/19/18 Prochlorperazine [Compazine] 25 mg RC BID PRN #14 supp.rect 05/29/19 Albuterol Sulfate/Ipratropium [Duoneb 2.5-0.5MG/3ML Soln] 3 ml INHALATION Q6HRT #120 nebu 11/16/19 Budesonide [Pulmicort Respules] 0.5 mg INHALATION BIDRT #60 vial.neb 11/16/19 Cefdinir 300 mg PO BID #14 cap 11/16/19 Clonidine HCl [Catapres] 0.1 mg PO Q8H #90 tab 11/16/19 Formoterol Fumarate [Perforomist] 20 mcg INHALATION BIDRT #60 vial 11/16/19 LORazepam [Ativan] 1 mg PO Q8H #90 tab 11/16/19 SUMAtriptan SUCCINATE [Imitrex] 100 mg PO DAILY PRN #9 tab 11/16/19 Topiramate [Topamax] 50 mg PO BID #60 tab 11/16/19 Valsartan [Diovan] 160 mg PO DAILY #30 tab 11/16/19
[2019-11-16] MEDS: LORazepam 1 MG TABLET PO SCH (09:14)
[2019-11-16 11:55] VITALS: BP 92/64
== END 2019-11-16 12:15 | disposition home or self-care (01) | DRG 190 ==
LOC: ER 20:52 → MS 23:38
PROVIDERS: ADMIT Family Medicine; ATTEND Family Medicine
DX: Z99.81 Dependence on supplemental oxygen; J44.1 Chronic obstructive pulmonary disease with (acute) exacerbation; J45.901 Unspecified asthma with (acute) exacerbation; R07.9 Chest pain, unspecified; F41.8 Other specified anxiety disorders; Z23 Encounter for immunization; G43.109 Migraine with aura, not intractable, without status migrainosus; I10 Essential (primary) hypertension; F32.9 Major depressive disorder, single episode, unspecified; F17.210 Nicotine dependence, cigarettes, uncomplicated; M79.7 Fibromyalgia; J96.01 Acute respiratory failure with hypoxia; E03.9 Hypothyroidism, unspecified
CPT/HCPCS: 36415; 71010; 71045; 80053; 80061; 83519; 83880; 84439; 84443; 84484; 85007; 85025; 87040; 87081; 90471; 90686; 93005; 94640; 94664; 94760; 99285

== ENCOUNTER 2020-08-08 11:48 | Observation (INO) ==
[2020-08-08] MEDS ORDERED: ALBUTEROL SULFATE/IPRATROPIUM 3 ML NEBU IH ONE ×2 (12:02)
[2020-08-08] MEDS ORDERED: METHYLPREDNISOLONE SOD SUCC/PF 40 MG/ML VIAL IV ONE (12:10)
[2020-08-08 12:26] LABS: Hemoglobin 11.5 gm/dL (12.5-16.0); Mean Cell Volume 102.8 fl (78-100); Mean Corpuscular Hemoglobin 31.9 pg (27-31); Mean Corpuscular Hgb Conc 31.1 g/dl (32-36); Mean Platelet Volume 10.2 fl (8-12.5); Neutrophil # 9.3 K/mm3 (1.3-6.0); Neutrophil % 75.2 % (42-75.0); Platelet Count 437 K/mm3 (150-450); Red Cell Distribution Width 12.4 % (11.5-14.0); White Blood Count 12.4 K/mm3 (4.0-10.5)
[2020-08-08 12:41] LABS: Troponin I Less than 0.017 ng/mL (0.00-0.10)
[2020-08-08 12:43] LABS: ALT 12 U/L (19-67); AST 23 U/L (0-48); Albumin * 2.9 gm/dl (3.4-5.0); Alkaline Phosphatase * 112 U/L (50-170); Anion Gap 11.4 mmol/L (6.8-13.8); BNP * 287 pg/mL (5-205); BUN/Creatinine Ratio 14.9 (9.0-21.6); Bilirubin, Total 0.2 mg/dL (0.0-1.1); Blood Urea Nitrogen 14 mg/dL (3-23); Ca. Corrected For Albumin 9.4 mg/dL (8.4-10.2); Calcium * 8.8 mg/dL (7.9-10.9); Chloride 103 mmol/L (97-106); Glucose * 116 mg/dL (70-110); Potassium 4.4 mmol/L (3.4-4.6); Sodium 139 mmol/L (132-142); Total Protein 6.8 gm/dL (6.2-8.2)
[2020-08-08 13:36] LABS: SARS-CoV-2 Not Detected (NotDetected)
[2020-08-08 13:47] LABS: Urine Bilirubin Negative (NEGATIVE); Urine Blood Negative /ul (NEGATIVE); Urine Ketone 5 mg/dL (NEGATIVE); Urine Protein Negative (NEGATIVE); Urine Specific Gravity 1.015 SP.GR. (1.005-1.010); Urine Urobilinogen Normal (NORMAL)
[2020-08-08 13:54] LABS: Urine Appearance Slightly Cloudy (CLEAR); Urine Bacteria 3+; Urine Color Yellow; Urine Nitrite Positive (NEGATIVE); Urine RBC None Seen /hpf (0-5); Urine WBC 0-5 /hpf (0-5)
[2020-08-08] MEDS ORDERED: ALBUTEROL SULFATE 2.5 MG/0.5 ML VIAL.NEB IH ONE ×2 (14:34→14:35)
[2020-08-08] MEDS ORDERED: AZITHROMYCIN 500 MG in DEXTROSE 5 % IN WATER 250 ML IV ONE ×2 (14:45)
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
[2020-08-08] MEDS ORDERED: SUMAtriptan SUCCINATE 50 MG TABLET PO PRN (16:26)
[2020-08-08] MEDS ORDERED: tiZANidine HCL 4 MG TABLET PO PRN (16:26)
[2020-08-08] MEDS ORDERED: ALBUTEROL SULFATE 2.5 MG/0.5 ML VIAL.NEB IH PRN (16:26)
[2020-08-08] MEDS ORDERED: LORazepam 1 MG TABLET PO SCH ×2 (17:00→22:32)
[2020-08-08] MEDS: predniSONE 20 MG TABLET PO SCH (17:02)
[2020-08-08] MEDS: CEFUROXIME AXETIL 500 MG TABLET PO SCH (17:02)
[2020-08-08] MEDS: MONTELUKAST SODIUM 10 MG TABLET PO SCH (17:03)
[2020-08-08] MEDS: ALBUTEROL SULFATE/IPRATROPIUM 3 ML NEBU IH SCH (17:54)
[2020-08-08] MEDS ORDERED: rOPINIRole HCL 1 MG TABLET PO SCH (21:00)
[2020-08-08] MEDS ORDERED: Atomoxetine Hcl 40 MG PO SCH (21:00)
[2020-08-08] MEDS: TOPIRAMATE 50 MG TABLET PO SCH (22:12)
[2020-08-08] MEDS: carBAMazepine 200 MG TABLET PO SCH (22:12)
[2020-08-08] MEDS ORDERED: FLU VACC QS2020-21(6MOS UP)/PF 60 MCG/0.5 ML SYRINGE IM ONE (23:51)
[2020-08-09] MEDS: ALBUTEROL SULFATE/IPRATROPIUM 3 ML NEBU IH SCH ×3 (01:00→12:57)
[2020-08-09] MEDS: CEFUROXIME AXETIL 500 MG TABLET PO SCH ×2 (05:31→16:14)
[2020-08-09 06:44] LABS: Hematocrit 33.7 % (37.0-47.0); Hemoglobin 10.5 gm/dL (12.5-16.0); Mean Cell Volume 102.7 fl (78-100); Mean Corpuscular Hgb Conc 31.2 g/dl (32-36); Mean Platelet Volume 10.4 fl (8-12.5); Neutrophil # 7.2 K/mm3 (1.3-6.0); Neutrophil % 63.1 % (42-75.0); Platelet Count 477 K/mm3 (150-450); Red Blood Count 3.28 M/mm3 (4.2-5.4); Red Cell Distribution Width 12.3 % (11.5-14.0); White Blood Count 11.4 K/mm3 (4.0-10.5)
[2020-08-09] MEDS ORDERED: PANTOPRAZOLE SODIUM 40 MG TABLET.EC PO SCH (07:00)
[2020-08-09] MEDS ORDERED: LEVOTHYROXINE SODIUM 50 MCG TABLET PO SCH (07:00)
[2020-08-09 07:04] LABS: Albumin * 2.6 gm/dl (3.4-5.0); BUN/Creatinine Ratio 23.2 (9.0-21.6); Bilirubin, Total 0.1 mg/dL (0.0-1.1); Ca. Corrected For Albumin 9.5 mg/dL (8.4-10.2); Calcium * 8.7 mg/dL (7.9-10.9)
[2020-08-09] MEDS: LORazepam 1 MG TABLET PO SCH ×2 (08:41→12:04)
[2020-08-09] MEDS: predniSONE 20 MG TABLET PO SCH (08:42)
[2020-08-09] MEDS: TOPIRAMATE 50 MG TABLET PO SCH (08:44)
[2020-08-09] MEDS ORDERED: ASPIRIN 81 MG TAB.CHEW PO SCH (09:00)
[2020-08-09] MEDS ORDERED: SERTRALINE HCL 100 MG TABLET PO SCH (09:00)
[2020-08-09] MEDS ORDERED: MIRTAZAPINE 15 MG TABLET PO SCH (09:00)
[2020-08-09] MEDS ORDERED: LOSARTAN POTASSIUM 50 MG TABLET PO SCH (09:00)
[2020-08-09] MEDS ORDERED: SIMVASTATIN 20 MG TABLET PO SCH ×2 (09:00→21:00)
[2020-08-09] MEDS ORDERED: amLODIPine BESYLATE 10 MG TABLET PO SCH (09:00)
[2020-08-09] MEDS: carBAMazepine 200 MG TABLET PO SCH (09:30)
[2020-08-09] MEDS ORDERED: FLU VACC QS2020-21(6MOS UP)/PF 60 MCG/0.5 ML SYRINGE IM ONE (10:00)
[2020-08-09] MEDS: MONTELUKAST SODIUM 10 MG TABLET PO SCH (16:14)
--- NOTE | 2020-08-09 16:16 | HPDIS ---
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 10 mg PO DAILY #14 tab 05/01/20 valsartan 160 mg tablet 160 mg PO DAILY #30 tab 06/03/20 Lorazepam 1 mg PO TID 06/20/20 ropinirole 2 mg tablet 1 tab PO HS 06/20/20 montelukast 10 mg tablet 10 mg PO QPM #30 tab 06/21/20 pravastatin 40 mg tablet 40 mg PO QAM #30 tab 06/21/20 tizanidine 6 mg capsule 6 mg PO TID PRN #90 cap 06/25/20 mirtazapine 30 mg tablet See Rx Instructions .ROUTE .COMPLEX #30 unknown measu rement unit code: tablet 07/25/20 amlodipine 5 mg tablet 10 mg PO DAILY #30 tab 08/08/20 carbamazepine 200 mg tablet See Rx Instructions .ROUTE .COMPLEX #60 unknown measurement unit code: tablet 08/08/20 levothyroxine 50 mcg capsule 50 mcg PO DAILY #30 cap 08/08/20 topiramate 100 mg tablet See Rx Instructions .ROUTE .COMPLEX #60 unknown measurement unit code: tablet 08/08/20 Cefuroxime Axetil [Ceftin] 250 mg PO Q12H #14 tab 08/09/20 predniSONE [Prednisone] 40 mg PO DAILY #7 tab 08/09/20 Forms: Patient Portal Registration
[2020-08-09 16:46] VITALS: BP 111/78
== END 2020-08-09 16:58 | disposition home health service (06) ==
LOC: ER 11:48 → MS 11:48
PROVIDERS: ADMIT Family Medicine; ATTEND Family Medicine